=== PATIENT | male | born 1970 | race Caucasian/White ===

== ENCOUNTER → 2018-02-17 19:47 | Outpatient (CLI) | payer BC, SELFPAY | PROVIDERS: PCP Emergency Medicine; Visit Provider Nurse Practitioner Family | DX: G47.33 Obstructive sleep apnea (adult) (pediatric) (principal); G47.30 Sleep apnea, unspecified; I10 Essential (primary) hypertension; E66.9 Obesity, unspecified | CPT/HCPCS: 95811 ==

== ENCOUNTER 2019-02-05 19:24 | Inpatient (IN) ==
--- NOTE | 2019-02-05 19:31 | Emergency Department Note ---
ED Disposition <Prem Styles - Last Filed: 02/05/19 19:46> Condition on Discharge: Fair Time of Disposition: 21:42 - Critical Care Critical Care Time: No <Wild Peraza - Last Filed: 02/05/19 21:43> Clinical Impression: COPD exacerbation, Acute respiratory failure with hypoxia Disposition: Admitted as Observation Referrals: Irma Carroll APRN [Primary Care Provider] - Attestation: On 02/05/19, the high probability of a clinically significant, sudden or life threatening deterioration of the following system(s) required my full and direct attention, intervention and personal management. The time I documented below is in addition to time spent performing reported procedures but includes the following listed in this critical care notation. Medical Decision Making <Prem Styles - Last Filed: 02/05/19 19:46> - Medical Records Medical records reviewed: Yes: I reviewed the patient's medical records. - Oswald Inquiry Pt receiving controlled substance: No Oswald was queried for this patient: No - Lab Data Lab results reviewed: Yes: I reviewed the patient's lab results. Result diagrams: 02/05/19 19:25 02/05/19 19:25 - ECG Data Tracing #1 ECG initial impression date: 02/05/19 ECG initial impression time: 20:00 Normal Sinus Rhythm: Yes Arrhythmias present: sinus tach - Physician Consults Physician Consulted: deysi Time: 21:41 Reason -: Admission <Wild Peraza - Last Filed: 02/05/19 21:43> Vital Signs: 02/05/19 19:25 02/05/19 19:37 02/05/19 19:48 Temperature 100.5 F H Temperature Source Oral Pulse Rate Pulse Rate [Right Brachial] 117 H 120 H Respiratory Rate 26 H Blood Pressure [Right Arm] 159/106 H 150/101 H Blood Pressure Mean [Right Arm] 123 117 Blood Pressure Source [Right Arm] Automatic Cuff Automatic Cuff Blood Pressure Position [Right Arm] Sitting Sitting 02 Sat by Pulse Oximetry 85 L 92 L 90 L Oxygen Delivery Method Non-Rebreather Room Air Nasal Cannula Oxygen Flow Rate (LPM) 6 02/05/19 19:49 02/05/19 20:00 02/05/19 20:01 Temperature Temperature Source Pulse Rate 93 H 94 H Pulse Rate [Right Brachial] Respiratory Rate Blood Pressure [Right Arm] Blood Pressure Mean [Right Arm] Blood Pressure Source [Right Arm] Blood Pressure Position [Right Arm] 02 Sat by Pulse Oximetry 88 L Oxygen Delivery Method Nasal Cannula Oxygen Flow Rate (LPM) 4 02/05/19 20:05 02/05/19 20:50 02/05/19 20:51 Temperature Temperature Source Pulse Rate 91 H 90 Pulse Rate [Right Brachial] 113 H Respiratory Rate 23 Blood Pressure [Right Arm] 121/72 Blood Pressure Mean [Right Arm] 88 Blood Pressure Source [Right Arm] Automatic Cuff Blood Pressure Position [Right Arm] Sitting 02 Sat by Pulse Oximetry 93 L Oxygen Delivery Method Nasal Cannula Oxygen Flow Rate (LPM) 4 02/05/19 20:52 Temperature 99.9 F H Temperature Source Oral Pulse Rate Pulse Rate [Right Brachial] 110 H Respiratory Rate 18 Blood Pressure [Right Arm] 132/72 Blood Pressure Mean [Right Arm] 92 Blood Pressure Source [Right Arm] Automatic Cuff Blood Pressure Position [Right Arm] Sitting 02 Sat by Pulse Oximetry 94 L Oxygen Delivery Method Nasal Cannula Oxygen Flow Rate (LPM) 4 - Lab Data Lab Results 02/05/19 19:25: WBC 14.5 H, RBC 6.02, Hgb 17.2, Hct 50.3, MCV 83.4, MCH 28.5, MCHC 34.1, RDW 12.6, Plt Count 360, MPV 7.4, Neut % (Auto) 77.3, Lymph % (Auto) 13.7, [place] % (Auto) 5.2, Eos % (Auto) 3.4, Baso % (Auto) 0.5, Neut # (Auto) 11.2 H, Lymph # (Auto) 2.0, [place] # (Auto) 0.8, Eos # (Auto) 0.5 H, Baso # (Auto) 0.1 02/05/19 19:25: Sodium 137, Potassium 4.6, Chloride 100, Carbon Dioxide 29, Anion Gap 12.6, BUN 9, Creatinine 0.71, Estimated Creat Clear 138, Estimated GFR 119, Est GFR ( Amer) 145, Glucose 100, Calcium 8.3 L, Total Bilirubin 0.8, AST 17, ALT 22, Alkaline Phosphatase 106, Troponin I < 0.02, Total Protein 7.9, Albumin 3.3 L, Globulin 4.6 H, Albumin/Globulin Ratio 0.7 L 02/05/19 19:25: D-Dimer 177 02/05/19 19:25: B-Natriuretic Peptide 6 02/05/19 19:38: Lactate 1.2 02/05/19 20:12: Specimen Source R/r, O2 % 3.5, ABG pH 7.41, ABG pCO2 43.7, ABG pO2 54.0 L, ABG HCO3 27.0 H, ABG Total CO2 28.4 H, ABG O2 Saturation 91, ABG Base Excess 2.4 H, Arley Test Y Orders (Tests/Meds): ED MEDICATIONS Generic Name Dose Route Start Last Admin Trade Name Freq PRN Reason Stop Dose Admin Ceftriaxone Sodium 2 gm/ 100 mls @ 200 mls/hr 02/05/19 21:15 Sodium Chloride IV 02/19/19 21:14 Q24H [facility] Protocol Azithromycin 500 mg/ Sodium 250 mls @ 250 mls/hr 02/05/19 21:15 Chloride IV 02/19/19 21:14 Q24H [facility] Protocol Discontinued Medications Generic Name Dose Route Start Last Admin Trade Name Freq PRN Reason Stop Dose Admin Albuterol/Ipratropium 3 ml 02/05/19 19:28 02/05/19 19:48 Duoneb 3ml [facility] 02/05/19 19:29 3 ml ONCE ONE Administration Albuterol/Ipratropium 3 ml 02/05/19 20:16 02/05/19 20:48 Duoneb 3ml [facility] 02/05/19 20:17 3 ml ONCE ONE Administration Aspirin 324 mg 02/05/19 19:28 02/05/19 19:36 Aspirin 81mg Chewable Tablet PO 02/05/19 19:29 324 mg ONCE ONE Administration Methylprednisolone Sodium Succinate 125 mg 02/05/19 19:28 02/05/19 19:36 Solu-Medrol 125mg/2ml Vial IV 02/05/19 19:29 125 mg ONCE ONE Administration ORDERS Category Date Time Status XR chest portable Stat Exams 02/05/19 19:27 Taken Blood Culture Stat Micro 02/05/19 19:38 Received ABG [Arterial Blood Gas] Stat RT 02/05/19 19:48 Ordered ECG Request by /Lacey Stat Y 02/05/19 19:27 Ordered - ECG Data Tracing #1 incomplete RBBB, ST, no ischemia (Wild Peraza) Medical Decision Narrative: care to Dr Peraza at 20:00 (Prem Styles) General Adult HPI - General Mode of Arrival: EMS Source of Information: Patient, EMS <Prem Styles - Last Filed: 02/05/19 19:46> - General Limitations: dyspnea <Wild Peraza - Last Filed: 02/05/19 21:43> - General Stated complaint: CP Time Seen by Provider: 02/05/19 19:29 - History of Present Illness HPI narrative: mild to mod short of breath constant today, hx copd, no chest pain, no fever, +home oxygen, no rash (Prem Styles) - Related Data Home Medications Medication Instructions Recorded Confirmed Amlodipine Besylate [Norvasc 5mg 5 mg PO DAILY 02/05/19 02/05/19 tablet] Lisinopril [Prinivil 10mg Tablet] 10 mg PO DAILY 02/05/19 02/05/19 Allergies Allergy/AdvReac Type Severity Reaction Status Date / Time No Known Allergies Allergy Verified 02/05/19 19:32 [facility] History Medical History: Reports:: Hypertension, Pulmonary Embolism Other Medical History: Reports: Other Comment: CRISTEL, Pulmonary Embolism Other Surgeries: Yes: Colonoscopy, Other Amputation: No Fractures: No Comment: ilostomy, ilostomy take down - Social History Smoking Status: Current every day smoker # Packs/Day (cigarettes): 1 #Yrs smoked (if former smoker): 28 Alcohol Intake: current Alcohol Intake Frequency:: holidays/special occasions only Substance Use Type: denies use Occupational Status: disabled Housing: apartment Household Members: none Family Hx:: Diabetes, Hypertension, Cancer <Prem Styles - Last Filed: 02/05/19 19:46> - Hepatitis A Screen Attestation statement:: This patient has been screened for Hepatitis A risk factors. ROS Obtained: Yes Systems reviewed as appropriate & no additional complaints - Constitutional Constitutional: Reports fatigue - Eyes Eyes: Denies change in vision - ENT Ears, Nose, Mouth, and Throat: Denies neck pain - Cardiovascular Cardiovascular: Denies chest pain - Respiratory Respiratory: Yes cough, Yes dyspnea - Gastrointestinal Gastrointestingal: Denies: abdominal pain - Musculoskeletal Musculoskeletal: Denies neck pain - Integumentary/Breasts Skin/Breast: Denies rash - Neurologic Neurologic: Denies dizziness <Prem Sytles - Last Filed: 02/05/19 19:46> Physical Exam - General General appearance: alert - Head Head exam: normocephalic - Eye Eye exam: Present: normal appearance - ENT ENT exam: Present: mucous membranes moist - Neck Neck exam: Present: normal inspection - Chest Chest inspection: Present: normal inspection - Respiratory Respiratory exam: Present: wheezes - Cardiovascular Cardiovascular exam: Present: normal rhythm, tachycardia - Abdominal Exam Abdominal exam: Present: soft. Absent: tenderness - Extremities Exam Extremities exam: Present: full ROM - Back Exam Back exam: Absent: vertebral tenderness - Neurological Exam Neurological exam: Present: alert, oriented X3 - Psychiatric Psychiatric exam: Present: normal affect, normal mood - Skin Skin exam: Present: warm, dry <Prem Styles - Last Filed: 02/05/19 19:46> - Respiratory Respiratory exam: Present: prolonged expiratory phase <Wild Peraza - Last Filed: 02/05/19 21:43>
[2019-02-05 19:53] LABS: Basophils # 0.1 K/mm3 (0-0.2); Basophils % 0.5 % (0.1-2.0); Eosinophils # 0.5 K/mm3 (0.0-0.4); Eosinophils % 3.4 % (0.1-12.0); Hematocrit 50.3 % (42.0-52.0); Hemoglobin 17.2 g/dL (14.1-18.0); Lymphocytes % 13.7 % (10-50); Mean Corpuscular HGB Conc 34.1 g/dL (31.8-35.4); Mean Corpuscular Volume 83.4 fl (80-94); Mean Platelet Volume 7.4 fl (7.4-10.4); Monocytes # 0.8 K/mm3 (0.1-1.0); Monocytes % 5.2 % (1.7-9.3); Neutrophils # 11.2 K/mm3 (1.8-7.8); Neutrophils % 77.3 % (37.0-80.0); Platelet Count 360 K/mm3 (142-424); Red Blood Count 6.02 M/mm3 (4.60-6.20); Red Cell Distribution Width 12.6 % (11.5-17.5); White Blood Count 14.5 K/mm3 (4.8-10.8)
[2019-02-05 20:06] LABS: Alanine Aminotransferase 22 U/L (12-78); Albumin Level 3.3 gm/dL (3.4-5.0); Albumin/Globulin Ratio 0.7 (1.1-1.8); Alkaline Phosphatase 106 U/L (46-116); Anion Gap 12.6 mEq/L (5-15); Aspartate Amino Transferase 17 U/L (15-37); Bilirubin,Total 0.8 mg/dL (0.2-1.0); Blood Urea Nitrogen 9 mg/dL (7-18); Calcium 8.3 mg/dL (8.5-10.1); Carbon Dioxide 29 mmol/L (21.0-32.0); Chloride 100 mmol/L (98-107); Globulin 4.6 gm/dl (1.3-3.2); Glucose 100 mg/dL (74-106); Sodium 137 mmol/L (136-145); Total Protein,Serum 7.9 gm/dL (6.4-8.2)
[2019-02-05 20:13] LABS: ABG Base Excess 2.4 mmol/L (-2.4-2.3); ABG Oxygen Saturation 91 % (90-100); ABG PCO2 43.7 mmhg (35.0-45.0); ABG PH 7.41 mmol/L (7.35-7.45); ABG TCO2 28.4 mmhg (23-27)
[2019-02-05 20:14] LABS: Allen's Test Y; Oxygen 3.5 %
[2019-02-06 04:08] LABS: Basophils % 0.2 % (0.1-2.0); Eosinophils # 0.1 K/mm3 (0.0-0.4); Eosinophils % 0.4 % (0.1-12.0); Hematocrit 50.6 % (42.0-52.0); Hemoglobin 16.9 g/dL (14.1-18.0); Lymphocytes # 0.8 K/mm3 (0.7-4.5); Lymphocytes % 6.7 % (10-50); Mean Corpuscular HGB Conc 33.4 g/dL (31.8-35.4); Mean Corpuscular Volume 85.7 fl (80-94); Mean Platelet Volume 7.2 fl (7.4-10.4); Monocytes # 0.2 K/mm3 (0.1-1.0); Monocytes % 1.7 % (1.7-9.3); Neutrophils # 10.6 K/mm3 (1.8-7.8); Neutrophils % 90.9 % (37.0-80.0); Platelet Count 346 K/mm3 (142-424); Red Blood Count 5.91 M/mm3 (4.60-6.20); Red Cell Distribution Width 12.5 % (11.5-17.5); White Blood Count 11.6 K/mm3 (4.8-10.8)
[2019-02-06 04:23] LABS: Anion Gap 13.6 mEq/L (5-15); Blood Urea Nitrogen 11 mg/dL (7-18); Calcium 8.6 mg/dL (8.5-10.1); Carbon Dioxide 30 mmol/L (21.0-32.0); Chloride 98 mmol/L (98-107); Sodium 137 mmol/L (136-145)
[2019-02-06 04:29] LABS: Glucose 199 mg/dL (74-106)
[2019-02-06 04:31] LABS: Lymphocytes % 5 % (10-50); Neutrophils % 89 % (42-76); RBC Morphology Normal; Total Cells Counted 100
--- NOTE | 2019-02-06 07:41 | History & Physical Report ---
*Admission Date: 02/05/19 *Chief complaint: Shortness of breath *History of present illness: 48-year-old male with hypertension and COPD with [id number] history of cigarette use, and sleep apnea presented to the emergency department with 2 days of shortness of breath, increased sputum production, subjective fevers without chills. He also reports to me this morning a week to a week and a half of chest tightness as if a weight was sitting on his chest that he attributed to coughing. Patient uses BiPAP with oxygen at night but admits that his oxygen concentrator has been malfunctioning for quite some time. He has not contacted his medical DME supplier to remedy this situation. Over the preceding 48 hours his symptoms began and quickly escalated and he sought treatment at the emergency department. In the emergency department the patient was in mild respiratory distress which was corrected with supplemental oxygen and breathing treatments. However even in the emergency department while patient's O2 sats were adequate on oxygen with ambulation he would desat into the mid 80s. Patient was admitted for treatment of COPD exacerbation. Patient tells me he also has inhaled medications at home, Spiriva and albuterol, which some time ago and he has yet to refill [facility] History I have reviewed the patient's past medical history: Yes Medical History: Reports:: Chronic Obstructive Pulmonary Disease (COPD), Hypertension, Pulmonary Embolism Denies:: Cancer, Diabetes Mellitus Type 1, Diabetes Mellitus Type 2, MRSA *Have you ever received a pneumonia vaccine?: No *Have you received a flu vaccine this season?: No Other Medical History: Reports: Other Comment:: Obstructive sleep apnea Other Surgeries: Yes: Colonoscopy, Other Amputation: No Fractures: No - *Social History Educational Level: Attended College Smoking Status: Current every day smoker Tobacco Type: cigarettes # Packs/Day (cigarettes): 1 #Yrs smoked (if former smoker): 28 Alcohol Intake: never Alcohol Intake Frequency:: holidays/special occasions only Substance Use Type: denies use *Occupational Status:: disabled Housing: other Household Members: none *Travel in the last 8 weeks: None - Psychiatric History Expresses thoughts of harming self/others: None Suicide Plan Description: No Plan Family Hx:: Diabetes, Hypertension, Cancer Review of Systems - Review of Systems Review of systems:: pertinent systems reviewed and negative unless documented below - Constitutional Reports fatigue, Reports fever(s), Denies body ache(s), Denies chills - *Cardiovascular Reports chest pain at rest, Reports shortness of breath, Reports shortness of breath with activity, Denies generalized swelling - *Respiratory Comments: Orthopnea - *Neurologic Denies dizziness Meds Home Medications Medication Instructions Recorded Confirmed Type Amlodipine Besylate [Norvasc 5mg 5 mg PO DAILY 02/05/19 02/05/19 History tablet] Lisinopril [Prinivil 10mg Tablet] 10 mg PO DAILY 02/05/19 02/05/19 History Allergies Allergy/AdvReac Type Severity Reaction Status Date / Time No Known Allergies Allergy Verified 02/05/19 19:32 Exam Vital signs and Labs for Last 24 Hours: Temp Pulse Resp BP Pulse Ox 97.7 F 101 H 18 135/79 90 L 02/06/19 04:00 02/06/19 06:32 02/06/19 04:00 02/06/19 04:00 02/06/19 06:32 Laboratory Results - last 24 hr 02/05/19 19:25: WBC 14.5 H, RBC 6.02, Hgb 17.2, Hct 50.3, MCV 83.4, MCH 28.5, MCHC 34.1, RDW 12.6, Plt Count 360, MPV 7.4, Neut % (Auto) 77.3, Lymph % (Auto) 13.7, [place] % (Auto) 5.2, Eos % (Auto) 3.4, Baso % (Auto) 0.5, Neut # (Auto) 11.2 H, Lymph # (Auto) 2.0, [place] # (Auto) 0.8, Eos # (Auto) 0.5 H, Baso # (Auto) 0.1 02/05/19 19:25: Sodium 137, Potassium 4.6, Chloride 100, Carbon Dioxide 29, Anion Gap 12.6, BUN 9, Creatinine 0.71, Estimated Creat Clear 138, Estimated GFR 119, Est GFR ( Amer) 145, Glucose 100, Calcium 8.3 L, Total Bilirubin 0.8, AST 17, ALT 22, Alkaline Phosphatase 106, Troponin I < 0.02, Total Protein 7.9, Albumin 3.3 L, Globulin 4.6 H, Albumin/Globulin Ratio 0.7 L 02/05/19 19:25: D-Dimer 177 02/05/19 19:25: B-Natriuretic Peptide 6 02/05/19 19:38: Lactate 1.2 02/05/19 20:12: Specimen Source R/r, O2 % 3.5, ABG pH 7.41, ABG pCO2 43.7, ABG pO2 54.0 L, ABG HCO3 27.0 H, ABG Total CO2 28.4 H, ABG O2 Saturation 91, ABG Base Excess 2.4 H, Arley Test Y 02/06/19 01:10: Troponin I < 0.02 02/06/19 04:00: WBC 11.6 H, RBC 5.91, Hgb 16.9, Hct 50.6, MCV 85.7, MCH 28.6, MCHC 33.4, RDW 12.5, Plt Count 346, MPV 7.2 L, Neut % (Auto) 90.9 H, Lymph % (Auto) 6.7 L, [place] % (Auto) 1.7, Eos % (Auto) 0.4, Baso % (Auto) 0.2, Neut # (Auto) 10.6 H, Lymph # (Auto) 0.8, [place] # (Auto) 0.2, Eos # (Auto) 0.1, Baso # (Auto) 0.0, Total Counted 100, Neutrophils % (Manual) 89 H, Band Neutrophils % 6.0, Lymphocytes % (Manual) 5 L, Platelet Estimate Normal, RBC Morphology Normal 02/06/19 04:00: Sodium 137, Potassium 4.6, Chloride 98, Carbon Dioxide 30, Anion Gap 13.6, BUN 11, Creatinine 0.85, Estimated Creat Clear 116, Estimated GFR 97, Est GFR ( Amer) 117, Glucose 199 H D, Calcium 8.6, Troponin I < 0.02 I & O for Last 24 hours: Intake & Output 02/03/19 02/04/19 02/05/19 02/06/19 11:59 11:59 11:59 11:59 Output Total 650 / 650 Balance -650 / -650 Weight 316 lb 2 oz Narrative: Patient is sitting up in bed this morning with noticeable increased respiratory rate and pressure lipped breathing. ENT exam is unremarkable. Neck has no jugular venous distention or lymphadenopathy. Lung exam reveals poor inspiratory effort, faint expiratory wheeze with forced expiration, overall distant breath sounds. Heart has a regular rate and rhythm. Abdomen is obese and soft. Extremities are without edema. Neurologically there is no deficit. Assessment and Plan (1) Acute respiratory failure with hypoxia Current visit: Yes Status: Acute Category: Medical Code(s): J96.01 - Acute respiratory failure with hypoxia Patient admits he has improved. I am suspicious that there is any diastolic dysfunction going on here and so patient's fluids will be stopped, IV diuretics will be ordered and an echocardiogram will be ordered for the morning. He will be maintained on oxygen at this time. (2) COPD exacerbation Current visit: Yes Status: Acute Category: Medical Code(s): J44.1 - Chronic obstructive pulmonary disease with (acute) exacerbation Continue IV steroids and duo nebs for his COPD exacerbation. Sputum has been sent for culture and he will be continued on antibiotics (3) Hypertension Current visit: No Status: Acute Qualifiers: Hypertension type: other secondary hypertension Qualified Code(s): I15.8 - Other secondary hypertension Category: Medical Code(s): I10 - Essential (primary) hypertension (4) Sleep apnea Current visit: No Status: Chronic Qualifiers: Sleep apnea type: other type Qualified Code(s): G47.39 - Other sleep apnea Category: Medical Code(s): G47.30 - Sleep apnea, unspecified
--- NOTE | 2019-02-06 10:51 | Pharmacy Consult Notes ---
[facility] Pharmacy VTE Monitoring - Patient Demographics Admission date: 02/05/19 Report Date: 02/06/19 Time: 10:51 Allergies/Adverse Reactions: Patient Allergies No Known Allergies Allergy (Verified 02/05/19 19:32) Height: 1.8 m Weight: 143.392 kg Patient Problems: Current Active Problems (Updated 02/06/19 @ 07:44 by Brandon Colon MD) COPD exacerbation (Acute) Acute respiratory failure with hypoxia (Acute) - VTE Risk Labs: VTE Related Lab Results Hgb 16.9 g/dL (14.1-18.0) 02/06/19 04:00 Hct 50.6 % (42.0-52.0) 02/06/19 04:00 Plt Count 346 K/mm3 (142-424) 02/06/19 04:00 BUN 11 mg/dL (7-18) 02/06/19 04:00 Creatinine 0.85 mg/dL (0.70-1.30) 02/06/19 04:00 Estimated Creat Clear 116 mL/min (50-200) 02/06/19 04:00 Was VTE Risk Assessment Performed: Yes VTE Score: 6 VTE Risk Level: Moderate Risk - Prophylaxis VTE Prophylaxis Ordered?: Yes Types of VTE Prophylaxis: TEDS Knee High Location of Applied Device: Bilateral Lower Extremeties
--- NOTE | 2019-02-07 11:42 | Progress Note ---
Internal Medicine - PN: Subj *Date: 02/07/19 *Time: 11:38 Interval history: Patient admitted 02/05/18 for COPD exacerbation. Presented to ER via EMS for shortness of breath, hypoxia. has portable O2 at home but concentrator has not been working and hasn't had a chance to get if fixed. Has been on inhalers in the past, but has not had RX for inhalers since moving to [place] several months ago. Has had 10 days or so of chest tightness, primarily with coughing. Pain in left side of chest. This has improved since admission, but still present with cough. States nebs make him cough more and therefore cause pain to recur. Overall, however, states he is feeling better and questions being able to go home. Exam Vital signs and Labs for Last 24 Hours: Temp Pulse Resp BP Pulse Ox 98.0 F 103 H 20 116/66 90 L 02/07/19 10:51 02/07/19 11:16 02/07/19 10:51 02/07/19 10:51 02/07/19 10:51 I & O for Last 24 hours: Intake & Output 02/04/19 02/05/19 02/06/19 02/07/19 11:59 11:59 11:59 11:59 Intake Total 1200 / 1200 1967 / 1967 Output Total 1600 / 1600 2625 / 2625 Balance -400 / -400 -657 / -657 Weight 316 lb 2 oz 317 lb 8 oz - Constitutional no acute distress, obese Comments: dyspneic with speech - *Routine HEENT Exam Head: Present: normocephalic Eye: Present: PERRL ENT: Present: mucous membranes moist - *Routine Respiratory Exam Present: prolonged expiratory phase, wheezes - *Routine Cardiovascular Exam Present: RRR - *Routine Abdominal Exam Present: soft. Absent: tenderness - *Routine Extremities Exam Present: full ROM, normal capillary refill. Absent: cyanosis, clubbing - *Routine Skin Exam Present: intact. Absent: cyanosis - *Routine Neurological Exam Present: alert, oriented X3 Assessment and Plan (1) Acute respiratory failure with hypoxia Current visit: Yes Status: Acute Category: Medical Code(s): J96.01 - Acute respiratory failure with hypoxia (2) COPD exacerbation Current visit: Yes Status: Acute Category: Medical Code(s): J44.1 - Chronic obstructive pulmonary disease with (acute) exacerbation (3) Hypertension Current visit: No Status: Acute Qualifiers: Hypertension type: other secondary hypertension Qualified Code(s): I15.8 - Other secondary hypertension Category: Medical Code(s): I10 - Essential (primary) hypertension (4) Sleep apnea Current visit: No Status: Chronic Qualifiers: Sleep apnea type: other type Qualified Code(s): G47.39 - Other sleep apnea Category: Medical Code(s): G47.30 - Sleep apnea, unspecified (5) Chest pain Current visit: Yes Status: Acute Category: Medical Code(s): R07.9 - Chest pain, unspecified - Assessment and plan all Dx Assessment and Plan for all problems:: Continue current antibiotics, steroids and neb treatments. Sputum culture is pending. Patient questions discharge from hospital - will discuss with Dr Pelayo Patient will need new oxygen concentrator upon discharge. Will also need new scripts for inhalers sent to [facility]. Cardiology consult due to chest pain, h/o HTN. The patient's infection will respond to the chosen ABx?: Yes Is the patient receiving the right drug, dose, and route?: Yes Could a more targeted ABx be ordered?: No
--- NOTE | 2019-02-07 13:20 | Consult Report ---
History of Present Illness Consult date: 02/07/19 Requesting physician: Wild Pelayo Consult reason: chest pain Chief complaint: chest pain, HTN Additional Medical History:: 1. Tobacco use, continued A. COPD 2. Sleep apnea, history of BiPAP use 3. Obesity 4. Hypertension 5. History of DVT and pulmonary embolus approximately 2010, anticoagulation therapy for about 1 year 6. History of ileostomy placement and takedown approximately 2014 with surgical removal of about 1 foot of the small intestine per patient. This was felt to be related to a polyp that had ruptured. History of present illness: 48-year-old male with hypertension and COPD with [id number] history of cigarette use, and sleep apnea presented to the emergency department with 2 days of shortness of breath, increased sputum production, subjective fevers without chills. He also reports to me this morning a week to a week and a half of chest tightness as if a weight was sitting on his chest that he attributed to coughing. Patient uses BiPAP with oxygen at night but admits that his oxygen concentrator has been malfunctioning for quite some time. He has not contacted his medical DME supplier to remedy this situation. Over the preceding 48 hours his symptoms began and quickly escalated and he sought treatment at the emergency department. In the emergency department the patient was in mild respiratory distress which was corrected with supplemental oxygen and breathing treatments. However even in the emergency department while patient's O2 sats were adequate on oxygen with ambulation he would desat into the mid 80s. Rowena villarreal was admitted for treatment of COPD exacerbation. Patient tells me he also has inhaled medications at home, Spiriva and albuterol, which some time ago and he has yet to refill The above per Dr. Colon Patient describes his chest discomfort is worsening with deep breathing or coughing only. He denies any exertional chest pain. Patient is not a diabetic but is a long-term smoker. EKG on admission shows sinus tachycardia with right axis deviation. Troponins have returned normal x3. D-dimer noted to be within normal limits. BNP noted to be 6. Chest x-ray showed no evidence of congestive heart failure. Preliminary echocardiogram today shows preserved left ventricular ejection fraction although images are somewhat difficult to obtain. No appreciable significant valvular heart disease noted. [facility] History Medical History: Reports:: Chronic Obstructive Pulmonary Disease (COPD), Hypertension, Pulmonary Embolism Denies:: Cancer, Diabetes Mellitus Type 1, Diabetes Mellitus Type 2, MRSA *Have you ever received a pneumonia vaccine?: No *Have you received a flu vaccine this season?: No Other Medical History: Reports: Other Other Surgeries: Yes: Colonoscopy, Other Amputation: No Fractures: No - *Social History Educational Level: Attended College Smoking Status: Current every day smoker Tobacco Type: cigarettes # Packs/Day (cigarettes): 1 #Yrs smoked (if former smoker): 28 Alcohol Intake: never Alcohol Intake Frequency:: holidays/special occasions only Substance Use Type: denies use *Occupational Status:: disabled Housing: other Household Members: none *Travel in the last 8 weeks: None - Psychiatric History Expresses thoughts of harming self/others: None Suicide Plan Description: No Plan Family Hx:: Diabetes, Hypertension, Cancer Meds Home Medications Medication Instructions Recorded Confirmed Type Amlodipine Besylate [Norvasc 5mg 5 mg PO DAILY 02/05/19 02/05/19 History tablet] Lisinopril [Prinivil 10mg Tablet] 10 mg PO DAILY 02/05/19 02/05/19 History Allergies Allergy/AdvReac Type Severity Reaction Status Date / Time No Known Allergies Allergy Verified 02/05/19 19:32 Review of Systems - *Cardiovascular Reports chest pain, Reports shortness of breath with activity - *Respiratory Reports cough, Reports shortness of breath, Reports shortness of breath with activity - *Gastrointestinal Denies change in stools, Denies nausea, Denies vomiting - *Genitourinary Reports urinary urgency, Denies blood in urine - *Musculoskeletal Reports joint pain, Reports back pain - *Neurologic Denies dizziness Exam Vital signs and Labs for Last 24 Hours: Temp Pulse Resp BP Pulse Ox 98.0 F 103 H 20 116/66 90 L 02/07/19 10:51 02/07/19 11:16 02/07/19 10:51 02/07/19 10:51 02/07/19 10:51 I & O for Last 24 hours: Intake & Output 02/05/19 02/06/19 02/07/19 02/08/19 11:59 11:59 11:59 11:59 Intake Total 1200 / 1200 1967 / 1967 360 / 360 Output Total 1600 / 1600 2625 / 2625 Balance -400 / -400 -657 / -657 360 / 360 Weight 316 lb 2 oz 317 lb 8 oz - *Routine HEENT Exam Head: Present: normocephalic Eye: Present: EOMI, PERRL ENT: Present: mucous membranes moist - *Routine Neck Exam Present: supple. Absent: JVD, carotid bruit - *Routine Respiratory Exam Present: CTA bilaterally. Absent: accessory muscle use, rales, rhonchi, wheezes - *Routine Cardiovascular Exam Present: RRR. Absent: murmur, gallop, rubs - *Routine Abdominal Exam Present: soft. Absent: tenderness, distended, guarding - *Routine Extremities Exam Absent: edema, calf tenderness - *Routine Neurological Exam Present: alert, oriented X3, moving all extremities Assessment and Plan (1) Acute respiratory failure with hypoxia Current visit: Yes Status: Acute Category: Medical Code(s): J96.01 - Acute respiratory failure with hypoxia (2) COPD exacerbation Current visit: Yes Status: Acute Category: Medical Code(s): J44.1 - Chronic obstructive pulmonary disease with (acute) exacerbation (3) Hypertension Current visit: No Status: Acute Qualifiers: Hypertension type: other secondary hypertension Qualified Code(s): I15.8 - Other secondary hypertension Category: Medical Code(s): I10 - Essential (primary) hypertension (4) Sleep apnea Current visit: No Status: Chronic Qualifiers: Sleep apnea type: other type Qualified Code(s): G47.39 - Other sleep apnea Category: Medical Code(s): G47.30 - Sleep apnea, unspecified (5) Chest pain Current visit: Yes Status: Acute Category: Medical Code(s): R07.9 - Chest pain, unspecified - Assessment and plan all Dx Assessment and Plan for all problems:: 1. Chest pain with atypical features. With preserved ejection fraction on echocardiogram and normal troponins, no further cardiac work-up at this time until patient's pulmonary status has improved. An outpatient Lexiscan Myoview could be obtained in the near future. 2. Continue hypertension/antianginal medication in the form of Norvasc therapy. If heart rate control is needed, then consider cardizem therapy in place of norvasc. 3. Continue Lasix therapy for presumed pulmonary hypertension setting of COPD. 4. Patient could be discharged home from a cardiac standpoint with follow-up in our office in 1 to 2 weeks to proceed with further cardiac testing.
--- NOTE | 2019-02-07 21:49 | Cardiology Report ---
PROCEDURE: 2-D M-mode and color Doppler study INDICATIONS FOR THE TEST: Chest pain+ COPD+ Heart Murmur Tobacco Smoking+ Palpitations Fatigue Syncope Edema Hypertension+Diabetes Mellitus Rheumatic Fever SOB TRACY Obesity+Hyperlipidemia Family History HDSLEEP APNEA, HOME O2, PE Additional History PATIENT INFORMATION HEIGHT: 71 WEIGHT:316 GENDER: Male B/P:135/79 2-D/M-MODE INTERPRETATION: 2-D MEASUREMENTS OBSERVED VALUES IN CMS Right Ventricular Dimension (RVDd) 2.6 Interventricular Septum (Thickness)(IVsd) 1.6 Left Ventricular Internal Dimensions(LVIDd) 5.6 Left Ventricular Posterior Wall (Thickness)(LVPWd) 1.5 Aortic Root 3.7 Aortic Cusp Separation 2.1 Left Atrial Dimensions (LAD) 3.9 2D 1. Left atrium is mildly enlarged, left ventricle is normal size, mild concentric left ventricular hypertrophy, visually estimated ejection fraction 55% with no regional wall motion abnormality. 2. The right atrium and right ventricle are normal size and contractility. 3. The aortic valve is minimally thickened and fibrosed. 4. The mitral and tricuspid valvular grossly normal. 5. The pulmonic valve is poorly visualized. 6. No significant pericardial effusion noted. DOPPLER INTERROGATION: Doppler interrogation of the aortic, mitral and tricuspid valvular presence of mild mitral and tricuspid regurgitation, tricuspid regurgitation jet velocity is inadequate for calculation of the right ventricular systolic pressure, Doppler evidence of impaired relaxation seen, there is no tissue Doppler performed CONCLUSION: 1. Technically difficult study because of the patient's factor and poor acoustic windows 2. Normal left ventricular size, mild concentric left ventricular hypertrophy, visually estimated ejection fraction 55% with no regional wall motion abnormality, Doppler evidence of impaired relaxation seen, there is no tissue Doppler performed. 3. Mild mitral and tricuspid regurgitation 4. No significant pericardial effusion noted.
--- NOTE | 2019-02-08 08:55 | Progress Note ---
Internal Medicine - PN: Subj *Date: 02/08/19 *Time: 08:52 Interval history: 48-year-old male patient resting quietly in bed. He reports he is breathing better today he is currently on 1 L of oxygen per nasal cannula. We will try him today on room air and possibly discharge after lunch. Exam Vital signs and Labs for Last 24 Hours: Temp Pulse Resp BP Pulse Ox 98.0 F 102 H 18 125/77 90 L 02/08/19 08:00 02/08/19 08:00 02/08/19 08:00 02/08/19 08:00 02/08/19 08:00 I & O for Last 24 hours: Intake & Output 02/05/19 02/06/19 02/07/19 02/08/19 23:59 23:59 23:59 23:59 Intake Total 2928 / 2928 1080 / 1080 350 / 350 Output Total 2500 / 2800 3350 / 3350 Balance 428 / 128 -2270 / -2270 350 / 350 Weight 315 lb 8 oz 316 lb 2 oz 317 lb 8.015 oz 319 lb 6 oz Microbiology Reports for the Last 24 Hours: Microbiology 02/07/19 20:00 Sputum - Expectorated Sputum Gram Stain - Final 02/05/19 19:38 Blood Blood Culture - Preliminary 02/05/19 19:38 Blood Blood Culture - Preliminary NO GROWTH AFTER 48 HOURS - Constitutional no acute distress - *Routine HEENT Exam Head: Present: normocephalic Eye: Present: EOMI, PERRL ENT: Present: mucous membranes dry - *Routine Neck Exam Present: supple, full ROM - *Routine Respiratory Exam Present: wheezes - *Routine Cardiovascular Exam Present: RRR - *Routine Abdominal Exam Present: soft, normoactive bowel sounds. Absent: tenderness - *Routine Extremities Exam Present: pulses intact. Absent: cyanosis - Routine Back/Spine/Pelvis Exam Back/Spine: Present: full ROM. Absent: CVA tenderness - *Routine Skin Exam Present: intact - *Routine Neurological Exam Present: alert, oriented X3, CN II-XII intact - Routine Psychiatric Exam Present: normal affect, normal thought process Assessment and Plan (1) Acute respiratory failure with hypoxia Current visit: Yes Status: Acute Category: Medical Code(s): J96.01 - Acute respiratory failure with hypoxia (2) COPD exacerbation Current visit: Yes Status: Acute Category: Medical Code(s): J44.1 - Chronic obstructive pulmonary disease with (acute) exacerbation (3) Hypertension Current visit: No Status: Acute Qualifiers: Hypertension type: other secondary hypertension Qualified Code(s): I15.8 - Other secondary hypertension Category: Medical Code(s): I10 - Essential (primary) hypertension (4) Sleep apnea Current visit: No Status: Chronic Qualifiers: Sleep apnea type: other type Qualified Code(s): G47.39 - Other sleep apnea Category: Medical Code(s): G47.30 - Sleep apnea, unspecified (5) Chest pain Current visit: Yes Status: Acute Category: Medical Code(s): R07.9 - Chest pain, unspecified - Assessment and plan all Dx Assessment and Plan for all problems:: Rales per Dr. Pelayo all orders per Dr. Pelayo. Cards has seen and recommends: 1. Chest pain with atypical features. With preserved ejection fraction on echocardiogram and normal troponins, no further cardiac work-up at this time until patient's pulmonary status has improved. An outpatient Lexiscan Myoview could be obtained in the near future. 2. Continue hypertension/antianginal medication in the form of Norvasc therapy. If heart rate control is needed, then consider cardizem therapy in place of norvasc. 3. Continue Lasix therapy for presumed pulmonary hypertension setting of COPD. 4. Patient could be discharged home from a cardiac standpoint with follow-up in our office in 1 to 2 weeks to proceed with further cardiac testing. Michaela will evaluate home BiPAP and see if any repairs are needed
--- NOTE | 2019-02-08 12:09 | Discharge Summary ---
General - General Admission date:: 02/05/19 HPI HPI: 48 YOM is resting quietly in bed has room air saturation of 93% an walking saturation of 86%. States he is ready to go home. 48-year-old male with hypertension and COPD with [id number]-zxbx history of cigarette use, and sleep apnea presented to the emergency department with 2 days of shortness of breath, increased sputum production, subjective fevers without chills. He also reports to me this morning a week to a week and a half of chest tightness as if a weight was sitting on his chest that he attributed to coughing. Patient uses BiPAP with oxygen at night but admits that his oxygen concentrator has been malfunctioning for quite some time. He has not contacted his medical DME supplier to remedy this situation. Over the preceding 48 hours his symptoms began and quickly escalated and he sought treatment at the emergency department. In the emergency department the patient was in mild respiratory distress which was corrected with supplemental oxygen and breathing treatments. However even in the emergency department while patient's O2 sats were adequate on oxygen with ambulation he would desat into the mid 80s. Patient was admitted for treatment of COPD exacerbation. Patient tells me he also has inhaled medications at home, Spiriva and albuterol, which some time ago and he has yet to refill Hospital Course Hospital Course: Cards has seen and recommends: 1. Chest pain with atypical features. With preserved ejection fraction on echocardiogram and normal troponins, no further cardiac work-up at this time until patient's pulmonary status has improved. An outpatient Lexiscan Myoview could be obtained in the near future. 2. Continue hypertension/antianginal medication in the form of Norvasc therapy. If heart rate control is needed, then consider cardizem therapy in place of norvasc. 3. Continue Lasix therapy for presumed pulmonary hypertension setting of COPD. 4. Patient could be discharged home from a cardiac standpoint with follow-up in our office in 1 to 2 weeks to proceed with further cardiac testing. (Per Juanis Coleman) Michaela will evaluate home BiPAP and see if any repairs are needed Will be D/C home today on regular home meds and Z-Cal, Omnicef 300mg BID X 5 days, and Lisinopril 40mg QD Objective Vital signs: Temp Pulse Resp BP Pulse Ox 98.0 F 96 H 18 125/77 90 L 06/04/19 08:00 02/08/19 10:02 02/08/19 08:00 02/08/19 08:00 02/08/19 08:00 no acute distress, morbidly obese - *Routine HEENT Exam Head: Present: normocephalic Eye: Present: EOMI, PERRL, normal accommodation ENT: Present: mucous membranes dry - *Routine Neck Exam Present: supple, trachea midline - *Routine Respiratory Exam Present: wheezes. Absent: accessory muscle use - *Routine Cardiovascular Exam Present: RRR - *Routine Abdominal Exam Present: soft, normoactive bowel sounds. Absent: tenderness - *Routine Extremities Exam Present: pulses intact - Routine Back/Spine/Pelvis Exam Back/Spine: Present: full ROM. Absent: CVA tenderness - *Routine Skin Exam Present: intact. Absent: jaundice - *Routine Neurological Exam Present: alert, oriented X3, CN II-XII intact - Routine Psychiatric Exam Present: normal affect, normal thought process Results Labs on day of discharge: Preliminary micro results at discharge 02/07/19 20:00 Sputum Culture - Preliminary Sputum - Expectorated Sputum 02/05/19 19:38 Blood Culture - Preliminary Blood 02/05/19 19:38 Blood Culture - Preliminary Blood NO GROWTH AFTER 48 HOURS - Additional Comments Rounded w/ Dr. Pelayo, all orders per Dr. Pelayo. DS: Diagnosis - Discharge Diagnosis (1) Acute respiratory failure with hypoxia Status: Acute (2) COPD exacerbation Status: Acute (3) Hypertension Status: Acute (4) Sleep apnea Status: Chronic (5) Chest pain Status: Acute Discharge Plan - Patient Discharge Instructions ACTIVITY: Continue current activity DIET: continue same diet Patient Instructions: Chronic Obstructive Pulmonary Disease, DI for Chronic Obstructive Pulmonary Disease - Follow up Plan Follow up with: Wild Pelayo MD [Staff Physician] - 1 week Reginald Oliver MD [Staff Physician] - 2 weeks Disposition: Home, Self-Fdc Medications: Home Medications Medication Instructions Recorded Confirmed Type Amlodipine Besylate [Norvasc 5mg 5 mg PO DAILY 02/05/19 02/05/19 History tablet] Lisinopril [Prinivil 10mg Tablet] 10 mg PO DAILY 02/05/19 02/05/19 History Azithromycin [Z-Cal 250mg Tab] 250 mg PO UD DOSE PK #6 tab 02/08/19 Rx Cefdinir [Omnicef 300mg Capsule] 300 mg PO BID 5 Days #10 cap 02/08/19 Rx Furosemide [Lasix 40mg tab] 40 mg PO DAILY 30 Days #30 tab 02/08/19 Rx Prescriptions/Medication Reconciliation: New Azithromycin [Z-Cal 250mg Tab] 250 mg PO UD DOSE PK #6 tab Furosemide [Lasix 40mg tab] 40 mg PO DAILY 30 Days #30 tab Cefdinir [Omnicef 300mg Capsule] 300 mg PO BID 5 Days #10 cap Continued Amlodipine Besylate [Norvasc 5mg tablet] 5 mg PO DAILY Lisinopril [Prinivil 10mg Tablet] 10 mg PO DAILY
== END 2019-02-08 17:40 | disposition home or self-care (01) | DRG 189 ==
LOC: ER 19:24 → 2ND 19:24 → OBSVTOIN 22:50 → 2ND 22:54
PROVIDERS: ADMIT Family Medicine; ATTEND Emergency Medicine
DX: J96.01 Acute respiratory failure with hypoxia; R07.89 Other chest pain; Z91.19 Patient's noncompliance with other medical treatment and regimen; Z90.49 Acquired absence of other specified parts of digestive tract; Z79.899 Other long term (current) drug therapy; G47.30 Sleep apnea, unspecified; Z82.49 Family history of ischemic heart disease and other diseases of the circulatory system; Z80.9 Family history of malignant neoplasm, unspecified; Z86.711 Personal history of pulmonary embolism; Z86.718 Personal history of other venous thrombosis and embolism; F17.210 Nicotine dependence, cigarettes, uncomplicated; Z83.3 Family history of diabetes mellitus; I10 Essential (primary) hypertension; J44.1 Chronic obstructive pulmonary disease with (acute) exacerbation; Z99.81 Dependence on supplemental oxygen; Z91.14 Patient's other noncompliance with medication regimen
CPT/HCPCS: 36415; 71010; 71045; 80048; 80053; 82803; 83605; 83880; 84484; 85007; 85025; 85378; 87040; 87070; 87075; 87077; 87205; 93005; 93306; 94640; 94760; 94761; 96365; 96367; 96375; 99285; J0456

== ENCOUNTER → 2019-03-07 06:45 | Outpatient (CLI) | payer BC, SELFPAY ==
--- NOTE | 2019-03-07 06:48 | NM_ITS ---
CARDIOLITE SPECT MYOCARDIAL PERFUSION LEXISCAN, REST AND STRESS: [facility] REVIEW QGS EF AND WALL MOTION EVALUATION: QPS - PERFUSION EVALUATION HISTORY: C.P. DOSE: 10.06 mCi technetium 99m mibi intravenously at rest followed by 31.9 mCi technetium 99m mibi following the intravenous ministration of 0.4 mg of Lexiscan. Resting blood pressure is 129/62. Stress blood pressure 117/56. FINDINGS: Ejection fraction is calculated to be 55%. Stress images reveal left ventricular dilatation. There is activity in the inferior wall and septum. Rest images reveal no significant change. 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 This is a high risk abnormal stress test
--- NOTE | 2019-03-07 07:39 | HMH.ITSHM ---
Current Home Medications as stated by this patient [place]ks or physician representative. []BREO BISOPROLOL FUROSEMIDE AMLODIPINE LISINOPRIL
== END ==
PROVIDERS: PCP Nurse Practitioner Family; Visit Provider Nurse Practitioner Family
DX: R07.9 Chest pain, unspecified (principal); R06.09 Other forms of dyspnea; R94.31 Abnormal electrocardiogram [ECG] [EKG]; I45.10 Unspecified right bundle-branch block; I15.8 Other secondary hypertension; J44.1 Chronic obstructive pulmonary disease with (acute) exacerbation; G47.39 Other sleep apnea; F17.200 Nicotine dependence, unspecified, uncomplicated
CPT/HCPCS: 78452; 93017; A9502; J2785

== ENCOUNTER → 2019-05-23 14:21 | Outpatient (CLI) | payer BC, SELFPAY ==
[2019-05-23 15:20] LABS: Anion Gap 12.5 mEq/L (5-15); Blood Urea Nitrogen 8 mg/dL (7-18); Calcium 9.3 mg/dL (8.5-10.1); Carbon Dioxide 32 mmol/L (21.0-32.0); Chloride 100 mmol/L (98-107); Estimated Glomerular Filt Rate 104 ml/min (>60); GFR (African American) 125 ML/MIN (>60); Glucose 95 mg/dL (74-106); Potassium 4.5 mmoL/L (3.5-5.1); Sodium 140 mmol/L (136-145)
== END ==
PROVIDERS: Visit Provider Urology
DX: I25.10 Atherosclerotic heart disease of native coronary artery without angina pectoris (principal); R06.09 Other forms of dyspnea; I10 Essential (primary) hypertension; I51.89 Other ill-defined heart diseases; R06.00 Dyspnea, unspecified; F17.200 Nicotine dependence, unspecified, uncomplicated
CPT/HCPCS: 36415; 80048; 83880

== ENCOUNTER → 2020-07-03 12:26 | Outpatient (CLI) | payer MEDICARE, BC, SELFPAY ==
--- NOTE | 2020-07-03 12:27 | CA_ITS ---
APPROVED REPORT EXAM: Comprehensive 2D, Doppler, and color-flow Echocardiogram Electromechanical Equipment Tester: Mely Hamilton RDCS Ht: 5 ft 11 in Wt: 307lbs BSA: 2.53 BP: 134/63 mmHg Indications: SOA CM MORBID OBESITY 2D Dimensions LVOT 1.90 cm (M/F) 1.5-2.5 M-Mode Dimensions RVDd 2.97 cm (0.9-2.6) LA Diam 3.20 cm (1.9-4.0) LVDd 5.35 cm (3.5-5.7) Ao Diam 3.75 cm (2.0-3.7) LVDs 2.89 cm (3.5-5.7) IVSd 2.17 cm (0.6-1.1) PWd 1.66 cm (0.6-1.1) EF (Teich) 76.90% FS 46.00% EDV (Teich) 138.30 mL ESV (Teich) 31.90 mL LV Diastology E Decel Time 320.00 (160-240 msec) E/A Ratio 0.8 MED E' 5.40 (< 7 cm/sec) E'/MED E' Ratio 11.52 (>14) LAT E' 6.70 (<10 cm/sec) E/LAT E' Ratio 9.28 (>14) Aortic Valve LVOT Max 114.00 (70-110 cm/s) LVOT VTI 23.48 cm AoV Peak Enrico. 154.00 (50-130 cm/s) AO Peak GR. 9.70 mmHg AO Mean GR. 5.80 (<5 mmHg) AO VTI 24.24 (18-25 cm) VINCENZO (VTI) 2.75 (2.5-4.5 cm2) Mitral Valve MV E Max Enrico. 62.00 (40-130 cm/s) MV A Velocity 77.00 (40-130 cm/s) E/A Ratio 0.81 MV Decel. Time 320.00 (160-240 ms) MV PHT 94.00 ms Left Ventricle Technically difficult study because of the patient factors and poor acoustic windows, endocardial surfaces are very poorly visualized. Left atrium is mildly enlarged, left ventricle is normal size, mild concentric left ventricular hypertrophy, visually estimated ejection fraction 55% with no regional wall motion abnormality, grade 1 diastolic dysfunction seen without tissue Doppler evidence of raise left atrial pressure. Right Ventricle Right atrium and right ventricle are mildly enlarged with normal contractility. Aortic Valve Aortic valve is minimally thickened and fibrosed, there is no aortic stenosis or aortic insufficiency. Mitral Valve Mitral valve is grossly normal, there is mild mitral regurgitation. Tricuspid Valve Tricuspid valve grossly normal, there is mild tricuspid regurgitation. Tricuspid regurgitation jet velocity is inadequate for calculation of the right ventricular systolic pressure. Pulmonic Valve Pulmonic valve is poorly visualized. Great Vessels Aortic root is normal size. Pericardium No significant pericardial effusion noted. Conclusion 1. Technically difficult study because of the patient's factor and poor acoustic windows. 2. Biatrial enlargement, normal left ventricular size, mild concentric left ventricular hypertrophy, visually estimated ejection fraction 55% with no regional wall motion abnormality, grade 1 diastolic dysfunction seen without tissue Doppler evidence of raise left atrial pressure. 3. Mildly enlarged right ventricle with normal contractility. 4. Mild mitral and tricuspid regurgitation. 5. No significant pericardial effusion noted. Electronically signed by : Ceasar Wood, 07/03/2020 18:27:54
== END ==
PROVIDERS: PCP Nurse Practitioner Family; Visit Provider Nurse Practitioner Family
DX: I42.9 Cardiomyopathy, unspecified (principal); R06.09 Other forms of dyspnea
CPT/HCPCS: 93306

== ENCOUNTER → 2020-10-29 14:18 | Outpatient (CLI) | payer MEDICARE, BC, SELFPAY ==
[2020-10-31 14:32] LABS: Alpha-1-Antitrypsin 191 mg/dL (101-187)
== END ==
PROVIDERS: Visit Provider Internal Medicine Pulmonary Disease
DX: J44.9 Chronic obstructive pulmonary disease, unspecified (principal)
CPT/HCPCS: 36415; 82103

== ENCOUNTER → 2021-01-07 09:30 | Outpatient (CLI) | payer MEDICARE, BC, SELFPAY ==
[2021-01-07 10:05] VITALS: PULSE 80; PULSE 82
== END ==
PROVIDERS: PCP Emergency Medicine; Visit Provider Internal Medicine Pulmonary Disease
DX: J44.9 Chronic obstructive pulmonary disease, unspecified (principal)
CPT/HCPCS: 94060

== ENCOUNTER → 2021-09-26 09:59 | Outpatient (CLI) | payer MEDICARE, BC, SELFPAY ==
[2021-09-26 11:46] LABS: Alanine Aminotransferase 18 U/L (12-78); Albumin Level 4.1 g/dl (3.5-5.0); Alkaline Phosphatase 98 U/L (38-126); Aspartate Amino Transferase 21 U/L (17-59); Bilirubin,Direct 0.2 mg/dl (0.0-0.4); Bilirubin,Indirect 0.6 mg/dL (0.0-0.9); Bilirubin,Total 0.8 mg/dl (0.2-1.3); Bilirubin,Unconjugated 0.6 mg/dL (0.0-1.1); Chol/HDL Ratio 6.5 (1-3.5); Cholesterol 169 mg/dl (140-200); HDL Cholesterol 26 mg/dl (40-60); Total Protein,Serum 7.3 g/dl (6.3-8.2); Triglycerides 84 mg/dl (30-150); VLDL Cholesterol 17 mg/dL (0-40)
[2021-09-26 11:57] LABS: Direct LDL Cholesterol 142.34 mg/dL (100-129)
== END ==
PROVIDERS: Visit Provider Nurse Practitioner Family
DX: I25.10 Atherosclerotic heart disease of native coronary artery without angina pectoris (principal); I42.9 Cardiomyopathy, unspecified; I51.89 Other ill-defined heart diseases; J44.1 Chronic obstructive pulmonary disease with (acute) exacerbation
CPT/HCPCS: 36415; 80061; 80076

== ENCOUNTER → 2021-11-26 19:56 | Outpatient (CLI) | payer MEDICARE, BC, SELFPAY ==
[2021-11-26 20:11] LABS: Coronavirus 19, PCR Not Detected (NotDetected); Influenza A, PCR Not Detected (NotDetected); Influenza B, PCR Not Detected (NotDetected)
== END ==
PROVIDERS: PCP Emergency Medicine; Visit Provider Nurse Practitioner Family
DX: Z01.812 Encounter for preprocedural laboratory examination (principal); Z11.52 Encounter for screening for COVID-19
CPT/HCPCS: C9803; U0003; U0005

== ENCOUNTER → 2021-11-27 20:05 | Outpatient (CLI) | payer MEDICARE, BC, SELFPAY | PROVIDERS: PCP Emergency Medicine; Visit Provider Nurse Practitioner Family | DX: G47.33 Obstructive sleep apnea (adult) (pediatric) (principal); G47.36 Sleep related hypoventilation in conditions classified elsewhere | CPT/HCPCS: 95811 ==

== ENCOUNTER → 2022-02-04 15:31 | Outpatient (CLI) | payer MEDICARE, BC, SELFPAY | PROVIDERS: PCP Emergency Medicine; Visit Provider Internal Medicine Pulmonary Disease | DX: R06.00 Dyspnea, unspecified (principal) | CPT/HCPCS: 94762 ==

== ENCOUNTER 2022-10-03 18:25 | Emergency (ER) | payer MEDICARE, BC, SELFPAY ==
[2022-10-03 18:40] VITALS: BP 114/70; PULSE 68; RESP 18; TEMP 36.9; O2SAT 95; BMI 43.2
--- NOTE | 2022-10-03 18:40 | HMH.EDGENADL ---
Discharge Plan Disposition Patient Disposition: Home, Self-Care Condition: Good Prescriptions Prescriptions: New cephalexin 500 mg capsule 500 mg PO QID 10 Days Qty: 40 0RF No Action aspirin [Adult Aspirin Regimen] 81 mg tablet,delayed release (DR/EC) 81 mg PO DAILY Qty: 90 3RF bisoprolol fumarate 10 mg tablet See Rx Instructions .ROUTE .COMPLEX Qty: 90 3RF Dose Instruction: TAKE ONE TABLET BY MOUTH EVERY DAY Rx Instructions: TAKE ONE TABLET BY MOUTH EVERY DAY furosemide 20 mg tablet See Rx Instructions .ROUTE .COMPLEX Qty: 90 3RF Dose Instruction: TAKE ONE TABLET BY MOUTH EVERY DAY Rx Instructions: TAKE ONE TABLET BY MOUTH EVERY DAY lisinopril 5 mg tablet See Rx Instructions .ROUTE .COMPLEX Qty: 90 3RF Dose Instruction: TAKE ONE TABLET BY MOUTH EVERY DAY Rx Instructions: TAKE ONE TABLET BY MOUTH EVERY DAY spironolactone 25 mg tablet See Rx Instructions .ROUTE .COMPLEX Qty: 90 3RF Dose Instruction: TAKE ONE TABLET BY MOUTH EVERY DAY Rx Instructions: TAKE ONE TABLET BY MOUTH EVERY DAY coenzyme Q10 [Co Q-10] 10 mg capsule 10 mg PO DAILY Anoro Ellipta 62.5-25 mcg/actuation blister with device 1 inh INHALATION DAILY Qty: 60 6RF albuterol sulfate 90 mcg/actuation HFA aerosol inhaler 1 inh INHALATION QID PRN (Reason: shortness of breath or wheezing) Qty: 6.7 12RF rosuvastatin 5 mg tablet See Rx Instructions .ROUTE .COMPLEX Qty: 30 11RF Dose Instruction: TAKE ONE TABLET BY MOUTH EVERY DAY Rx Instructions: TAKE ONE TABLET BY MOUTH EVERY DAY Referrals Follow up/Referrals: Wild Pelayo MD [Primary Care Provider] - See instructions Activity Restrictions/Add. Instructions Additional Instructions/Restrictions: Start taking the antibiotics as soon as possible. They have been called into your pharmacy of choice. Return to the emergency department immediately if you feel worse in any way. Follow-up with a dentist within the next 3 to 4 days. Follow-up with your primary care doctor within about 1 week if you do not notice any improvement. Clinical Impressions Clinical Impression: Cellulitis and abscess of buttock, Dental abscess, Cellulitis Instructions Patient Instructions: Tooth Abscess, DI for Skin Abscess Discharge ED Provider: Alvaro Chamberlain Adult HPI General Chief complaint: Skin/Abscess/Foreign Body Stated complaint: facial swelling, tooth pain Time Seen by Provider: 10/03/22 18:40 Mode of Arrival: Ambulatory Source of Information: Patient Limitations: No Limitations History of Present Illness HPI narrative: The patient presents to the emergency department complaining of 2 items. For 2 days he has a spot on his bottom and since yesterday he has swelling of his right face secondary to a tooth infection. He denies any other symptoms. He denies diabetes. Onset (ago): day(s) (2) Related Data Home Medications Medication Instructions Recorded Confirmed coenzyme Q10 10 mg capsule (Co 10 mg PO DAILY 12/18/21 03/27/22 Q-10) Previous Rx's Medication Instructions Recorded aspirin 81 mg tablet,delayed 81 mg PO DAILY #90 tabs 09/26/21 release (Adult Aspirin Regimen) bisoprolol fumarate 10 mg tablet See Rx Instructions .Route 09/26/21 .COMPLEX #90 tabs furosemide 20 mg tablet See Rx Instructions .Route 09/26/21 .COMPLEX #90 tabs lisinopril 5 mg tablet See Rx Instructions .Route 09/26/21 .COMPLEX #90 tabs spironolactone 25 mg tablet See Rx Instructions .Route 09/26/21 .COMPLEX #90 tabs albuterol sulfate 90 mcg/actuation 1 inh inhalation QID PRN shortness 01/07/22 aerosol inhaler of breath or wheezing #6.7 grams umeclidinium 62.5 mcg-vilanterol 1 inh inhalation DAILY copd #60 ea 01/07/22 25 mcg/actuation powdr for inhalation (Anoro Ellipta) rosuvastatin 5 mg tablet See Rx Instructions .Route 05/19/22 .COMPLEX #30 tabs cephalexin 500 mg capsule 500 mg
[2022-10-03 19:26] VITALS: BP 135/78; PULSE 70; RESP 18; TEMP 36.8; O2SAT 95
== END 2022-10-03 19:28 | disposition home or self-care (01) ==
PROVIDERS: Emergency Provider Emergency Medicine; PCP Emergency Medicine
DX: L03.317 Cellulitis of buttock (principal); L02.31 Cutaneous abscess of buttock; K12.2 Cellulitis and abscess of mouth; F17.210 Nicotine dependence, cigarettes, uncomplicated; Z86.79 Personal history of other diseases of the circulatory system; I25.10 Atherosclerotic heart disease of native coronary artery without angina pectoris; I42.9 Cardiomyopathy, unspecified; I45.19 Other right bundle-branch block; Z90.49 Acquired absence of other specified parts of digestive tract; Z83.3 Family history of diabetes mellitus; Z80.9 Family history of malignant neoplasm, unspecified; Z82.49 Family history of ischemic heart disease and other diseases of the circulatory system
CPT/HCPCS: 96372; 99284; J0561

== ENCOUNTER → 2023-01-07 10:45 | Outpatient (CLI) | payer MEDICARE, BC, SELFPAY | PROVIDERS: PCP Nurse Practitioner Family; Visit Provider Nurse Practitioner Family | DX: Z00.00 Encounter for general adult medical examination without abnormal findings (principal) ==

== ENCOUNTER → 2023-01-07 11:00 | Outpatient (CLI) | payer MEDICARE, BC, SELFPAY ==
[2023-01-07 14:40] LABS: Chloride 96 mmol/L (98-107); Potassium 4.7 mmoL/L (3.5-5.1); Sodium 136 mmol/L (136-145)
[2023-01-07 14:42] LABS: Alanine Aminotransferase 20 U/L (12-78); Aspartate Amino Transferase 24 U/L (17-59); Blood Urea Nitrogen 9 mg/dl (9-20); Estimated Glomerular Filt Rate 176 ml/min (>60); GFR (African American) 213 ML/MIN (>60)
[2023-01-07 14:43] LABS: Albumin Level 3.6 g/dl (3.5-5.0); Albumin/Globulin Ratio 1.1 (1.1-1.8); Alkaline Phosphatase 128 U/L (38-126); Anion Gap 15.7 mEq/L (5-15); Bilirubin,Total 0.8 mg/dl (0.2-1.3); Calcium 8.3 mg/dl (8.4-10.2); Carbon Dioxide 29 mmol/L (22.0-30.0); Chol/HDL Ratio 6.9 (1-3.5); Cholesterol 137 mg/dl (140-200); Globulin 3.2 g/dL (1.3-3.2); Glucose 123 mg/dl (74-100); HDL Cholesterol 20 mg/dl (40-60); Total Protein,Serum 6.8 g/dl (6.3-8.2); Triglycerides 120 mg/dl (30-150); VLDL Cholesterol 24 mg/dL (0-40)
[2023-01-07 14:57] LABS: Direct LDL Cholesterol 108.49 mg/dL (100-129)
[2023-01-07 14:59] LABS: Basophils # 0.1 K/mm3 (0-0.2); Basophils % 0.4 % (0.1-2.0); Eosinophils # 0.4 K/mm3 (0.0-0.4); Eosinophils % 3.1 % (0.1-12.0); Hematocrit 56.3 % (42.0-52.0); Hemoglobin 17.3 g/dL (14.1-18.0); Lymphocytes # 2.5 K/mm3 (0.7-4.5); Lymphocytes % 19.2 % (10-50); Mean Corpuscular HGB Conc 30.8 g/dL (31.8-35.4); Mean Corpuscular Volume 91.1 fl (80-94); Mean Platelet Volume 8.1 fl (7.4-10.4); Monocytes # 1.1 K/mm3 (0.1-1.0); Monocytes % 8.2 % (1.7-9.3); Neutrophils % 69.1 % (37.0-80.0); Platelet Count 311 K/mm3 (142-424); Red Blood Count 6.18 M/mm3 (4.60-6.20); Red Cell Distribution Width 13.3 % (11.5-17.5)
[2023-01-07 15:05] LABS: 25-OH Vitamin D, Total < 12.8 ng/mL (30-100)
[2023-01-07 15:13] LABS: Prostate Specific Ag Screen 0.7 ng/ml (0.0-4.0)
== END ==
PROVIDERS: PCP Nurse Practitioner Family; Visit Provider Nurse Practitioner Family
DX: I10 Essential (primary) hypertension (principal); Z12.5 Encounter for screening for malignant neoplasm of prostate; E55.9 Vitamin D deficiency, unspecified; Z79.899 Other long term (current) drug therapy
CPT/HCPCS: 80053; 80061; 82306; 84443; 85025; G0103

== ENCOUNTER 2023-02-18 09:26 | Emergency (ER) | payer MEDICARE, SELFPAY ==
--- NOTE | 2023-02-18 09:30 | XR_ITS ---
FINAL REPORT CLINICAL HISTORY: SLIPPED AND INJURED LEFT SECOND TOE x 2 days ago COMPARISON: None FINDINGS: LEFT FOOT: Three views of the left foot were obtained. There is no acute fracture or dislocation. There is mild degenerative change. Posterior calcaneal spur is noted. Forefoot soft tissue swelling is present IMPRESSION: No acute bony abnormality. Reviewed, Interpreted and Dictated by Rylan Cruz III, MD Transcribed by Christy Mejia Authenticated and [facility]
[2023-02-18 09:35] VITALS: BP 110/70; PULSE 76; RESP 18; TEMP 36.6; O2SAT 98; BMI 41.5
--- NOTE | 2023-02-18 09:44 | EXP.UTC ---
Discharge Plan Disposition Patient Disposition: Home, Self-Care Condition: Good Prescriptions Prescriptions: No Action coenzyme Q10 [Co Q-10] 10 mg capsule 10 mg PO DAILY albuterol sulfate 90 mcg/actuation HFA aerosol inhaler 1 inh INHALATION QID PRN (Reason: shortness of breath or wheezing) Qty: 6.7 12RF amlodipine 5 mg tablet 5 mg PO DAILY rosuvastatin 5 mg tablet See Rx Instructions .ROUTE .COMPLEX Qty: 30 11RF Dose Instruction: TAKE ONE TABLET BY MOUTH EVERY DAY Rx Instructions: TAKE ONE TABLET BY MOUTH EVERY DAY spironolactone 25 mg tablet See Rx Instructions .ROUTE .COMPLEX Qty: 90 3RF Dose Instruction: TAKE ONE TABLET BY MOUTH EVERY DAY Rx Instructions: TAKE ONE TABLET BY MOUTH EVERY DAY furosemide 20 mg tablet See Rx Instructions .ROUTE .COMPLEX Qty: 90 3RF Dose Instruction: TAKE ONE TABLET BY MOUTH EVERY DAY Rx Instructions: TAKE ONE TABLET BY MOUTH EVERY DAY bisoprolol fumarate 10 mg tablet See Rx Instructions .ROUTE .COMPLEX Qty: 90 3RF Dose Instruction: TAKE ONE TABLET BY MOUTH EVERY DAY Rx Instructions: TAKE ONE TABLET BY MOUTH EVERY DAY cholecalciferol (vitamin D3) 50 mcg (2,000 unit) capsule 50 mcg PO DAILY Qty: 30 4RF cholecalciferol (vitamin D3) 1,250 mcg (50,000 unit) tablet 1,250 mcg PO WEEKLY Qty: 7 2RF Anoro Ellipta 62.5-25 mcg/actuation blister with device 1 inh INHALATION DAILY Qty: 60 6RF Referrals Follow up/Referrals: Michael Stewart APRN [Primary Care Provider] - See instructions Activity Restrictions/Add. Instructions Additional Instructions/Restrictions: *weight bearing as tolerated *RICE, Rest the extremity, Ice 15-20 minutes 3-4 times daily, Compress- wear the benoit wrap as discussed as much as possible to help reduce swelling and pain, Elevate the extremity when at rest *Post Op Shoe is for support and help control swelling, use it except in the shower. Be sure that is not to tight but not to loose either *Elevate when resting? *Ibuprofen 600-800mg every 6-8 hours as needed for pain an inflammation if you can take it. If need something more can take Tylenol in between doses of Ibuprofen to help Immediately follow up with your family doctor for new or worsening of symptoms, or no noticeable improvement over the next 3-5 days Clinical Impressions Clinical Impression: Injury of toe Qualifiers: Encounter type: initial encounter Laterality: left Qualified Code(s): S99.922A - Unspecified injury of left foot, initial encounter Instructions Patient Instructions: Toe Sprain, How To Perform RICE (Rest, Ice, Compress, Elevate), DI for Toe Sprain Discharge ED Provider: Aria Patterson [facility] HPI General Stated complaint: AO6/9@home pain in Lt toe Mode of Arrival: Ambulatory Source of Information: Patient Limitations: No Limitations Time Seen by Provider: 02/18/23 09:44 Description of Symptoms (Recalled from Triage Doc. by RN): PATIENT C/O POSSIBLE DISLOCATION OF LEFT SECOND TOE AFTER HE SLIPPED AND BENT THE TOE ON THURSDAY HEENT Symptoms (Recalled from RN notes): No Resp Symptoms (Recalled from RN notes): No Skin Symptoms (Recalled from RN notes): No MS Symptoms (Recalled from RN notes): Yes Functional Status (Recalled from RN notes): WNL History of Present Illness Provider Complaint: Patient states that on Thursday he was walking and he slipped on the floor and bent his left second toe under his foot the wrong way and worried he may have dislocated it States that he has been having swelling and bruising so today he came in to get it checked Related Data Home Medications Medication Instructions Recorded Confirmed coenzyme Q10 10 mg capsule (Co 10 mg PO DAILY 12/18/21 02/18/23 Q-10) amlodipine 5 mg tablet 5 mg PO DAILY 01/07/23 02/18/23 Previous Rx's Medication Instructions Recorded albuterol sulfate 90 mcg/actuation 1 inh inhalation QID PRN shortness 01/07/22 aerosol inh
[2023-02-18 10:53] VITALS: BP 110/70; PULSE 76; RESP 18; TEMP 36.6; O2SAT 98
== END 2023-02-18 11:22 | disposition home or self-care (01) ==
PROVIDERS: Emergency Provider Nurse Practitioner; PCP Nurse Practitioner Family
DX: S99.922A Unspecified injury of left foot, initial encounter (principal); I25.10 Atherosclerotic heart disease of native coronary artery without angina pectoris; I42.9 Cardiomyopathy, unspecified; J43.9 Emphysema, unspecified; G47.30 Sleep apnea, unspecified; F17.210 Nicotine dependence, cigarettes, uncomplicated; W01.0XXA Fall on same level from slipping, tripping and stumbling without subsequent striking against object, initial encounter
CPT/HCPCS: 73630; 99203; 99204; 99212; G0463

== ENCOUNTER 2023-03-30 23:13 | Inpatient (IN) | payer MEDICARE, SELFPAY ==
[2023-03-30 23:14] VITALS: BP 126/59; PULSE 100; RESP 22; TEMP 36.8; O2SAT 85; BMI 45.3
--- NOTE | 2023-03-30 23:23 | PC.NURSE ---
Dr. Montes at BS
--- NOTE | 2023-03-30 23:29 | XR_ITS ---
PROCEDURE INFORMATION: Exam: XR Chest Exam date and time: 03/30/2023 11:39 PM Age: 52 years old Clinical indication: Shortness of breath; Additional info: SOA TECHNIQUE: Imaging protocol: Radiologic exam of the chest. Views: 1 view. COMPARISON: CR (CHEST, CXR AP LANDSCAPE) 09/12/2018 19:41 FINDINGS: Lungs: Mild pulmonary venous congestion. Bibasilar atelectasis. Pleural spaces: Unremarkable. No pleural effusion. No pneumothorax. Heart/Mediastinum: Cardiomegaly. Bones/joints: Unremarkable. IMPRESSION: Mild pulmonary venous congestion.
--- NOTE | 2023-03-30 23:30 | ECG_ITS ---
APPROVED REPORT Exam: Resting ECG HR:98 bpm ECG Measurements Heart Rate 98 AXES VA 188 P 60 QRSd 99 QRS 251 QT 351 T 82 QTc 406 Conclusion SINUS RHYTHM Bi-atrial abnormality PATTERN CONSISTENT WITH PULMONARY DISEASE INCOMPLETE RIGHT BUNDLE BRANCH BLOCK [90+ ms QRS DURATION, TERMINAL R IN V1/V2, 40+ ms S IN I/aVL/V4/V5/V6] RIGHT VENTRICULAR HYPERTROPHY Old septal changes ABNORMAL ECG UNCONFIRMED REPORT Electronically signed by : Brandon Boggs MD 03/31/2023 21:15:27
--- NOTE | 2023-03-30 23:33 | PC.NURSE ---
RT at BS to administer breathing treatment
--- NOTE | 2023-03-30 23:36 | PC.NURSE ---
Spoke to Adenike with [facility] to verify antibiotics
--- NOTE | 2023-03-30 23:37 | HMH.EDGENADL ---
Discharge Plan Disposition Patient Disposition: Admitted Condition: Fair Chief Complaint: Shortness of Breath/Dyspnea Prescriptions Prescriptions: No Action albuterol sulfate 90 mcg/actuation HFA aerosol inhaler 1 inh INHALATION QID PRN (Reason: shortness of breath or wheezing) Qty: 6.7 12RF Anoro Ellipta 62.5-25 mcg/actuation blister with device 1 inh INHALATION DAILY Qty: 60 6RF amlodipine 5 mg tablet 5 mg PO DAILY spironolactone 25 mg tablet See Rx Instructions .ROUTE .COMPLEX Rx Instructions: TAKE ONE TABLET BY MOUTH EVERY DAY bisoprolol fumarate 10 mg tablet See Rx Instructions .ROUTE .COMPLEX Rx Instructions: TAKE ONE TABLET BY MOUTH EVERY DAY furosemide 20 mg tablet See Rx Instructions .ROUTE .COMPLEX Rx Instructions: TAKE ONE TABLET BY MOUTH EVERY DAY rosuvastatin 5 mg tablet See Rx Instructions .ROUTE .COMPLEX Rx Instructions: TAKE ONE TABLET BY MOUTH EVERY DAY Clinical Impressions Clinical Impression: Acute exacerbation of chronic obstructive pulmonary disease, Preseptal cellulitis, Acute bacterial conjunctivitis Discharge ED Provider: Sam Montes General Adult HPI General Chief complaint: Shortness of Breath/Dyspnea Stated complaint: Eye swollen, SOA Time Seen by Provider: 03/30/23 23:16 Mode of Arrival: Wheelchair Source of Information: Patient and Significant Other Limitations: No Limitations Description of Symptoms (Recalled from ER Triage Doc. by RN): Pt presents with complaints of right swolen eyelid, when hooked up to monitor his oxygenation is 73%. Pt does not wear home, hx of COPD. Placed on 4l/nc Dr at bedside. History of Present Illness HPI narrative: Patient is a 52-year-old male with past medical history of sleep apnea, COPD only on nocturnal O2, coronary artery disease, tobacco dependence who presents emergency department for evaluation of eye swelling. Onset was acute, occurring over the last 24 hours, right-sided with associated drainage from both eyes. Patient does not wear contacts or have corrective vision. When hooked up to oxygen monitor his saturation was noted to be approximately 70% when asked if he was short of breath he states that he has had progressive shortness of breath over the last month, has chronic cough that is no worse than baseline. Patient denies chest pain, abdominal pain, other acute complaints at this time. He does state that he ran out of his Anoro Ellipta at home however only takes daily albuterol. Related Data Home Medications Medication Instructions Recorded Confirmed amlodipine 5 mg tablet 5 mg PO DAILY CAD 03/31/23 03/31/23 bisoprolol fumarate 10 mg tablet See Rx Instructions .Route 03/31/23 03/31/23 .COMPLEX HTN furosemide 20 mg tablet See Rx Instructions .Route 03/31/23 03/31/23 .COMPLEX CHF rosuvastatin 5 mg tablet See Rx Instructions .Route 03/31/23 03/31/23 .COMPLEX Cholesterol spironolactone 25 mg tablet See Rx Instructions .Route 03/31/23 03/31/23 .COMPLEX CHF Previous Rx's Medication Instructions Recorded albuterol sulfate 90 mcg/actuation 1 inh inhalation QID PRN shortness 01/07/22 aerosol inhaler of breath or wheezing #6.7 grams umeclidinium 62.5 mcg-vilanterol 1 inh inhalation DAILY copd #60 ea 03/12/23 25 mcg/actuation powdr for inhalation (Anoro Ellipta) Allergies Allergy/AdvReac Type Severity Reaction Status Date / Time aspirin AdvReac Mild nausea Verified 03/12/23 15:18 [facility] Disclaimer: The information contained in this section may have been updated after the patient was seen, as this information can be updated by other users. Medical History (Updated 03/31/23 @ 01:31 by Sam Montes MD) Abnormal EKG Abnormal stress test CAD (coronary artery disease) Cardiomyopathy Dyspnea Dyspnea on exertion History of sleep apnea LV dysfunction Nocturnal hypoxemia Pulmonary emphysema Right bundle branch block (RBBB) Shortbj
[2023-03-30 23:42] LABS: VBG Base Excess 11.8 mmol/L (-2.4-2.3); VBG HCO3 37.9 mmol/L (23-30); VBG Oxygen Saturation 66.7 % (50-70); VBG PCO2 75.2 mmol/L (35-51); VBG PH 7.32 mmol/L (7.31-7.41); VBG Total CO2 40.2 mmol/L (23-27)
--- NOTE | 2023-03-30 23:42 | PC.NURSE ---
RAD at for CXR
[2023-03-30 23:50] LABS: Alanine Aminotransferase 15 U/L (12-78); Albumin Level 3.7 g/dl (3.5-5.0); Albumin/Globulin Ratio 0.9 (1.1-1.8); Alkaline Phosphatase 108 U/L (38-126); Aspartate Amino Transferase 24 U/L (17-59); Bilirubin,Total 1.3 mg/dl (0.2-1.3); Blood Urea Nitrogen 5 mg/dl (9-20); Calcium 8.6 mg/dl (8.4-10.2); Chloride 94 mmol/L (98-107); Creatinine Clearance Estimated 157 mL/min (50-200); Estimated Glomerular Filt Rate 143 ml/min (>60); GFR (African American) 173 ML/MIN (>60); Globulin 3.9 g/dL (1.3-3.2); Glucose 131 mg/dl (74-100); Potassium 3.6 mmoL/L (3.5-5.1); Sodium 139 mmol/L (136-145); Total Protein,Serum 7.6 g/dl (6.3-8.2)
[2023-03-30 23:55] VITALS: PULSE 93; PULSE 95
[2023-03-30 23:55] LABS: D-Dimer 0.71 ug/mL (0.0-0.5)
[2023-03-30 23:58] LABS: Anion Gap 8.6 mEq/L (5-15); Carbon Dioxide 40 mmol/L (22.0-30.0)
[2023-03-31] VITALS (13 sets, daily range): BP systolic 122–160; BP diastolic 65–89; PULSE 79–95; RESP 18–23; TEMP 36.4–37.2; O2SAT 92–98; BMI 45.5
[2023-03-31 00:04] LABS: NT Pro Brain Natriuretic Pep. 981 pg/mL (0-125); Troponin I < 0.01 ng/ml (0.00-0.034)
[2023-03-31 00:06] LABS: Basophils # 0.1 K/mm3 (0-0.2); Basophils % 0.7 % (0.1-2.0); Eosinophils # 0.3 K/mm3 (0.0-0.4); Eosinophils % 2.5 % (0.1-12.0); Hematocrit 59.8 % (42.0-52.0); Hemoglobin 17.6 g/dL (14.1-18.0); Lymphocytes # 1.6 K/mm3 (0.7-4.5); Lymphocytes % 15.7 % (10-50); Mean Corpuscular HGB Conc 29.4 g/dL (31.8-35.4); Mean Corpuscular Hemoglobin 26.6 pg (27.0-31.2); Mean Corpuscular Volume 90.4 fl (80-94); Mean Platelet Volume 8.1 fl (7.4-10.4); Monocytes # 1.4 K/mm3 (0.1-1.0); Monocytes % 13.8 % (1.7-9.3); Neutrophils # 6.9 K/mm3 (1.8-7.8); Neutrophils % 67.4 % (37.0-80.0); Platelet Count 258 K/mm3 (142-424); Red Blood Count 6.62 M/mm3 (4.60-6.20); Red Cell Distribution Width 14.7 % (11.5-17.5); White Blood Count 10.2 K/mm3 (4.8-10.8)
--- NOTE | 2023-03-31 00:06 | CT_ITS ---
PROCEDURE INFORMATION: Exam: CTA Chest With Contrast Exam date and time: 03/31/2023 12:24 AM Age: 52 years old Clinical indication: Condition or disease; Lung condition and disease; Hypoxia; Additional info: Tachycardia/hypoxia TECHNIQUE: Imaging protocol: Computed tomographic angiography of the chest with contrast. Exam focused on the arteries. 3D rendering (Not supervised by radiologist): MIP and/or 3D reconstructed images were created by the technologist. Radiation optimization: All CT scans at this facility use at least one of these dose optimization techniques: automated exposure control; mA and/or kV adjustment per patient size (includes targeted exams where dose is matched to clinical indication); or iterative reconstruction. Contrast material: ISOVUE; Contrast volume: 70 ml; Contrast route: INTRAVENOUS (IV); REPORTING DATA: Count of CT and Cardiac NM exams in prior 12 months: This patient has received 0 known CTs and 0 known cardiac nuclear medicine studies in the 12 months prior to the current study. COMPARISON: CR XR CHEST PORTABLE 30/03/2023 23:39 FINDINGS: Pulmonary arteries: No pulmonary emboli. Enlarged pulmonary arteries likely represent chronic pulmonary arterial hypertension. Aorta: Unremarkable. No aortic aneurysm. No aortic dissection. Lungs: Interlobular septal thickening most likely represents pulmonary venous congestion. Mild scarring and atelectasis in the lower lungs. Mosaic attenuation of the lungs is nonspecific, but suggests small airway disease. Nodular opacity in left upper lobe measuring 7 mm on image 19 series 5 as punctate calcification is most likely a granuloma. Pleural spaces: Unremarkable. No pneumothorax. No pleural effusion. Heart: Unremarkable. No cardiomegaly. No pericardial effusion. Lymph nodes: Unremarkable. No enlarged lymph nodes. Liver: Hepatic steatosis. Spleen: The spleen is partially imaged, but is most likely enlarged. Bones/joints: Unremarkable. No acute fracture. Soft tissues: Bilateral gynecomastia. Intramuscular lipoma in the left rotator cuff muscles. IMPRESSION: 1. No pulmonary emboli. 2. Interlobular septal thickening most likely represents pulmonary venous congestion. 3. Mosaic attenuation of the lungs is nonspecific, but suggests small airway disease. Please correlate for evidence of asthma or bronchiolitis. 4. Hepatic steatosis.
--- NOTE | 2023-03-31 00:07 | PC.NURSE ---
Visual Acuity Both: 20/25 Left: 20/25 Right: 20/40
--- NOTE | 2023-03-31 00:08 | CT_ITS ---
PROCEDURE INFORMATION: Exam: CT Orbits With Contrast Exam date and time: 03/31/2023 12:32 AM Age: 52 years old Clinical indication: Screening exam; Periorbital vs orbital cellulitis TECHNIQUE: Imaging protocol: Computed tomography of the orbits with contrast. Radiation optimization: All CT scans at this facility use at least one of these dose optimization techniques: automated exposure control; mA and/or kV adjustment per patient size (includes targeted exams where dose is matched to clinical indication); or iterative reconstruction. Contrast material: ISOVUE; Contrast volume: 75 ml; Contrast route: IV; REPORTING DATA: Count of CT and Cardiac NM exams in prior 12 months: This patient has received 0 known CTs and 0 known cardiac nuclear medicine studies in the 12 months prior to the current study. COMPARISON: No relevant prior studies available. FINDINGS: Paranasal sinuses: Small amount of secretions in the paranasal sinuses. Orbital cavities: See Soft tissues finding. Dental: Multiple dental cavities with periapical lucencies that likely represent dental infection. Bones/joints: No acute fracture. Soft tissues: There is mild right periorbital edema. This is preseptal in location. There is no intraorbital spread of infection. IMPRESSION: 1. There is mild right periorbital edema. This is preseptal in location. There is no intraorbital spread of infection. 2. Small amount of secretions in the paranasal sinuses. Please exclude infection. 3. Multiple dental cavities with periapical lucencies that likely represent dental infection.
--- NOTE | 2023-03-31 00:16 | PC.NURSE ---
Pt gone to RAD
--- NOTE | 2023-03-31 01:28 | PC.NURSE ---
Addendum entered by Elliott Villagomez RN 03/31/23 01:29: Acute not OBS Original Note: Pt assigned to room 202 for COPD Exa. to the hospitalist. OBS
--- NOTE | 2023-03-31 02:07 | PC.NURSE ---
pt to floor via wheelchair at this time.
--- NOTE | 2023-03-31 02:27 | EXP.HP ---
History of Present Illness *Admission Date: 03/31/23 *Reason for visit:: right eye conjuntivitis/SOB *History of present illness: This is a 52-year-old male with PMHx of sleep apnea, COPD only on nocturnal O2, coronary artery disease, HTN, morbid obesity and tobacco dependence who presents emergency department for evaluation of eye swelling and discharge. Onset was acute, occurring over the last 24 hours, right-sided with associated drainage from both eyes. Patient does not wear contacts or have corrective vision. During his ER evaluation his saturation was noted to be approximately 70% when asked if he was short of breath he states that he has had progressive shortness of breath over the last month, has chronic cough that is no worse than baseline. Patient denies chest pain, abdominal pain, other acute complaints at this time. He does state that he ran out of his Anoro Ellipta at home however only takes daily albuterol. Admitted for further treatment. [facility] Disclaimer: The information contained in this section may have been updated after the patient was seen, as this information can be updated by other users. Medical History (Updated 03/31/23 @ 02:55 by Rui Womack APRN) Abnormal EKG Abnormal stress test CAD (coronary artery disease) Cardiomyopathy Dyspnea Dyspnea on exertion History of sleep apnea LV dysfunction Nocturnal hypoxemia Pulmonary emphysema Right bundle branch block (RBBB) Shortness of breath Sleep apnea Tobacco abuse counseling Tobacco abuse disorder Tobacco dependence syndrome Surgical History History of cardiac cath History of colonoscopy History of tonsillectomy Family History Other Cancer Diabetes Hypertension Social History (Updated 03/31/23 @ 02:51 by Cathleen Villarreal RN) Smoking Status: Current every day smoker tobacco type: cigarettes packs per day: 1 alcohol intake: never counseling provided: none substance use type: denies use current occupational status: disabled Travel in the last 8 weeks: Inside the [place] household members: none housing: other caffeine: Yes Review of Systems Review of Systems Review of systems:: pertinent systems reviewed and negative unless documented below Meds Home Medications and Allergies Home Medications Medication Instructions Recorded Confirmed Type albuterol sulfate 90 mcg/actuation 1 inh inhalation QID PRN COPD 03/31/23 03/31/23 History aerosol inhaler amlodipine 5 mg tablet 5 mg PO DAILY Blood Pressure 03/31/23 03/31/23 History bisoprolol fumarate 10 mg tablet 10 mg PO DAILY Blood Pressure 03/31/23 03/31/23 History furosemide 20 mg tablet 20 mg PO DAILY Fluid 03/31/23 03/31/23 History rosuvastatin 5 mg tablet 5 mg PO DAILY Cholesterol 03/31/23 03/31/23 History spironolactone 25 mg tablet 25 mg PO DAILY Fluid 03/31/23 03/31/23 History umeclidinium 62.5 mcg-vilanterol 1 inh inhalation DAILY COPD 03/31/23 03/31/23 History 25 mcg/actuation powdr for inhalation (Anoro Ellipta) New Prescriptions to Start Prescriptions: Allergies Allergy/AdvReac Type Severity Reaction Status Date / Time aspirin AdvReac Mild nausea Verified 03/12/23 15:18 Exam Data for Last 24 hours Vital signs and Labs for Last 24 Hours: Temp Pulse Resp BP Pulse Ox O2 Del Method O2 Flow Rate 98.8 F 94 H 19 139/75 92 L Nasal Cannula 4 03/31/23 02:00 03/31/23 02:00 03/31/23 02:00 03/31/23 02:00 03/31/23 02:00 03/31/23 02:00 03/31/23 02:00 Laboratory Results - last 24 hr 03/30/23 23:28: WBC 10.2, RBC 6.62 H, Hgb 17.6, Hct 59.8 H, MCV 90.4, MCH 26.6 L, MCHC 29.4 L, RDW 14.7, Plt Count 258, MPV 8.1, Neut % (Auto) 67.4, Lymph % (Auto) 15.7, Lincoln % (Auto) 13.8 H, Eos % (Auto) 2.5, Baso % (Auto) 0.7, Neut # (Auto) 6.9, Lymph # (Auto) 1.6, Lincoln # (Auto) 1.4 H, Eos # (Auto) 0.3, Baso # (Auto) 0.1, D-Dime
[2023-03-31 03:30] LABS: Troponin I < 0.01 ng/ml (0.00-0.034)
--- NOTE | 2023-03-31 05:12 | PC.NURSE ---
Since arriving to floor. Patient has rested in bed. Patient is on Bipap to sleep. will be on 4L NC when awake. No other issues have been noted by patient
[2023-03-31 06:15] LABS: POC Glucose,Bedside 171 (70-110)
[2023-03-31 06:25] LABS: Basophils % 0.3 % (0.1-2.0); Eosinophils % 0.3 % (0.1-12.0); Hematocrit 59.5 % (42.0-52.0); Hemoglobin 17.9 g/dL (14.1-18.0); Lymphocytes # 0.4 K/mm3 (0.7-4.5); Lymphocytes % 4.8 % (10-50); Mean Corpuscular HGB Conc 30.1 g/dL (31.8-35.4); Mean Corpuscular Hemoglobin 27.1 pg (27.0-31.2); Mean Corpuscular Volume 90.1 fl (80-94); Mean Platelet Volume 7.7 fl (7.4-10.4); Monocytes # 0.5 K/mm3 (0.1-1.0); Monocytes % 5.7 % (1.7-9.3); Neutrophils % 88.8 % (37.0-80.0); Platelet Count 253 K/mm3 (142-424); Red Cell Distribution Width 14.6 % (11.5-17.5)
[2023-03-31 06:26] LABS: MANUAL DIFFERENTIAL MANUAL DIFFERENTIAL (MANUAL DIFF); Troponin I < 0.01 ng/ml (0.00-0.034)
[2023-03-31 06:42] LABS: Alanine Aminotransferase 21 U/L (12-78); Albumin Level 3.7 g/dl (3.5-5.0); Albumin/Globulin Ratio 1.1 (1.1-1.8); Alkaline Phosphatase 101 U/L (38-126); Aspartate Amino Transferase 26 U/L (17-59); Bilirubin,Total 0.9 mg/dl (0.2-1.3); Blood Urea Nitrogen 5 mg/dl (9-20); Calcium 8.1 mg/dl (8.4-10.2); Chloride 93 mmol/L (98-107); Creatinine Clearance Estimated 183 mL/min (50-200); Estimated Glomerular Filt Rate 176 ml/min (>60); GFR (African American) 213 ML/MIN (>60); Globulin 3.5 g/dL (1.3-3.2); Glucose 193 mg/dl (74-100); Magnesium 1.5 mg/dl (1.6-2.3); Potassium 3.9 mmoL/L (3.5-5.1); Sodium 140 mmol/L (136-145); Total Protein,Serum 7.2 g/dl (6.3-8.2)
[2023-03-31 06:48] LABS: Anion Gap 12.9 mEq/L (5-15); Carbon Dioxide 38 mmol/L (22.0-30.0)
[2023-03-31 07:14] LABS: Lymphocytes % 5 % (10-50); Monocytes % 1 % (2-9); Neutrophils % 94 % (42-76); Platelet Estimate Normal; RBC Morphology Normal; Total Cells Counted 100
--- NOTE | 2023-03-31 07:15 | HMH.PHAINT1 ---
Pharmacy Intervention Comments: Patient's home medications reviewed and verified with external pharmacy and patient. -Melchor Reece, Pharm Student
[2023-03-31 07:35] LABS: ABG Base Excess 8.8 mmol/L (-2.4-2.3); ABG HCO3 35.8 mmhg (22.0-26.0); ABG Oxygen Saturation 91 % (90-100); ABG PH 7.26 mmol/L (7.35-7.45); ABG PO2 62.3 mmhg (80-100); ABG TCO2 38.3 mmhg (23-27)
[2023-03-31 07:38] LABS: Allen's Test Acceptable; Oxygen 4 LPM NC %; Source Right Radial
[2023-03-31 07:40] LABS: ABG PCO2 81.7 mmhg (35.0-45.0)
--- NOTE | 2023-03-31 08:16 | PC.NURSE ---
RESP CARE NOTE: Placed pt on 16/6 cmH2O to achieve Vt of 450ml or better, Dr Hyde at bedside for changes. Will continue to monitor patient.
[2023-03-31 11:06] LABS: POC Glucose,Bedside 184 (70-110)
[2023-03-31 11:30] LABS: ABG Base Excess 9.5 mmol/L (-2.4-2.3); ABG HCO3 36.6 mmhg (22.0-26.0); ABG Oxygen Saturation 94 % (90-100); ABG PH 7.26 mmol/L (7.35-7.45); ABG PO2 69.2 mmhg (80-100); ABG TCO2 39.2 mmhg (23-27)
[2023-03-31 11:32] LABS: ABG PCO2 84.1 mmhg (35.0-45.0); Allen's Test Acceptable; Oxygen 45 %; Pressure Support 18/6; Source Left Radial; Vent Rate 20
[2023-03-31 12:01] LABS: Adenovirus,PCR Not Detected (NotDetected); Bordetella Pertussis Not Detected (NotDetected); Chlamydophila Pneumoniae, PCR Not Detected (NotDetected); Coronavirus 19, PCR Not Detected (NotDetected); Coronavirus 229E Not Detected (NotDetected); Coronavirus NL63 Not Detected (NotDetected); Coronavirus OC43 Not Detected (NotDetected); Coronovirus HKU1,PCR Not Detected (NotDetected); Human Metapneumovirus Not Detected (NotDetected); Influenza A, PCR Not Detected (NotDetected); Influenza AH1, 2009 Not Detected (NotDetected); Influenza AH1, PCR Not Detected (NotDetected); Influenza AH3,PCR Not Detected (NotDetected); Influenza B, PCR Not Detected (NotDetected); Mycoplasma Pneumoniae, PCR Not Detected (NotDetected); Parainfluenza 1, PCR Not Detected (NotDetected); Parainfluenza 2, PCR Not Detected (NotDetected); Parainfluenza 3, PCR Not Detected (NotDetected); Parainfluenza 4, PCR Not Detected (NotDetected); Respiratory Syncytial Virus Not Detected (NotDetected); Rhinovirus/Enterovirus Not Detected (NotDetected)
[2023-03-31 16:43] LABS: POC Glucose,Bedside 234 (70-110)
[2023-03-31 17:14] LABS: ABG Base Excess 9.5 mmol/L (-2.4-2.3); ABG HCO3 35.1 mmhg (22.0-26.0); ABG Oxygen Saturation 97 % (90-100); ABG PH 7.35 mmol/L (7.35-7.45); ABG PO2 83.1 mmhg (80-100)
[2023-03-31 17:16] LABS: Oxygen 45 %; Source Left Radial; Vent Rate 22
[2023-03-31 17:17] LABS: ABG PCO2 64.5 mmhg (35.0-45.0)
[2023-03-31 22:52] LABS: POC Glucose,Bedside 213 (70-110)
[2023-04-01] VITALS (9 sets, daily range): BP systolic 128–161; BP diastolic 76–100; PULSE 73–96; RESP 16–26; TEMP 36.3–37.2; O2SAT 92–98; BMI 45.3
--- NOTE | 2023-04-01 04:57 | PC.NURSE ---
Patient has worn bipap most of the night. Took off from roughly 3am to 5am to eat and rest from it. Was put on 4L Nc and O2 stats were within normal limits. No other issues were noted by patient.
[2023-04-01 06:21] LABS: POC Glucose,Bedside 215 (70-110)
[2023-04-01 06:54] LABS: ABG Base Excess 9.1 mmol/L (-2.4-2.3); ABG HCO3 34.9 mmhg (22.0-26.0); ABG Oxygen Saturation 96 % (90-100); ABG PH 7.34 mmol/L (7.35-7.45); ABG PO2 76.5 mmhg (80-100); ABG TCO2 36.9 mmhg (23-27)
[2023-04-01 06:54] LABS: Alanine Aminotransferase 16 U/L (12-78); Albumin Level 3.4 g/dl (3.5-5.0); Albumin/Globulin Ratio 0.9 (1.1-1.8); Alkaline Phosphatase 93 U/L (38-126); Aspartate Amino Transferase 21 U/L (17-59); Bilirubin,Total 0.5 mg/dl (0.2-1.3); Blood Urea Nitrogen 17 mg/dl (9-20); Calcium 8.4 mg/dl (8.4-10.2); Chloride 97 mmol/L (98-107); Creatinine Clearance Estimated 152 mL/min (50-200); Estimated Glomerular Filt Rate 143 ml/min (>60); GFR (African American) 173 ML/MIN (>60); Globulin 3.6 g/dL (1.3-3.2); Glucose 258 mg/dl (74-100); Magnesium 2.1 mg/dl (1.6-2.3); Potassium 4.6 mmoL/L (3.5-5.1); Sodium 139 mmol/L (136-145)
[2023-04-01 06:56] LABS: Vent Rate 22
[2023-04-01 06:57] LABS: Allen's Test Acceptable; Pressure Support 14; Source Left Radial
[2023-04-01 06:59] LABS: ABG PCO2 65.8 mmhg (35.0-45.0)
[2023-04-01 07:01] LABS: Anion Gap 7.6 mEq/L (5-15); Basophils % 0.1 % (0.1-2.0); Carbon Dioxide 39 mmol/L (22.0-30.0); Eosinophils % 0.2 % (0.1-12.0); Hematocrit 59.3 % (42.0-52.0); Lymphocytes # 0.5 K/mm3 (0.7-4.5); Mean Corpuscular HGB Conc 28.7 g/dL (31.8-35.4); Mean Corpuscular Hemoglobin 26.2 pg (27.0-31.2); Mean Corpuscular Volume 91.4 fl (80-94); Monocytes # 1.3 K/mm3 (0.1-1.0); Monocytes % 11.2 % (1.7-9.3); Neutrophils % 84.5 % (37.0-80.0); Platelet Count 257 K/mm3 (142-424); Red Blood Count 6.48 M/mm3 (4.60-6.20); Red Cell Distribution Width 14.5 % (11.5-17.5); White Blood Count 11.9 K/mm3 (4.8-10.8)
--- NOTE | 2023-04-01 07:20 | CA_ITS ---
APPROVED REPORT EXAM: Comprehensive 2D, Doppler, and color-flow Echocardiogram Bilingual Receptionist: ZACARIAS Fernández, RVS Ht: 5 ft 10 in Wt: 323lbs BSA: 2.56 HR: 86 bpm BP: 139/75 mmHg Rhythm: NSR Indications: COPD, CAD, CM, RBBB,Obesity, Smoker, HTN, SOB Echo Enhancing Agent Indication: Endocardial border delineation Agent(s) / Amount(s) Used: Definity 2 cc Comments: Technically difficult exam: due to Extreme body habitus with lung impedance 2D Dimensions IVSd 1.36 cm M: 0.6-1.2 LVEF (Visual) 55.00 % PWd 1.14 cm M: 0.6 - 1.2 LA Volume 112.60 mL LVDd 5.91 cm M: 4.2 - 5.9 LA Volume Index 43.98 mL/m2 (M/F) 16-34 LVDs 4.58 cm M: 2.5 - 4.0 Aortic Root 3.11 cm M: 3.1 - 3.7 Left Atrium 3.84 cm M: 3.0 - 4.0 LVOT 2.03 cm (M/F) 1.5-2.5 M-Mode Dimensions LA Diam 4.61 cm (1.9-4.0) Ao Diam 3.44 cm (2.0-3.7) EPSs 0.99 cm TAPSE 3.25 (<1.7) LV Diastology E Decel Time 217.00 (160-240 msec) E/A Ratio 1.0 MED E' 6.70 (< 7 cm/sec) MED A' 9.40 cm/s E'/MED E' Ratio 18.36 (>14) LAT E' 7.90 (<10 cm/sec) LAT A' 13.00 cm/s E/LAT E' Ratio 15.57 (>14) Aortic Valve LVOT Max 125.00 (70-110 cm/s) LVOT VTI 24.60 cm AoV Peak Enrico. 185.00 (50-130 cm/s) AO Peak GR. 13.70 mmHg AO Mean GR. 6.80 (<5 mmHg) AO VTI 36.09 (18-25 cm) VINCENZO (VTI) 2.21 (2.5-4.5 cm2) Mitral Valve MV E Max Enrico. 123.00 (40-130 cm/s) MV A Velocity 123.00 (40-130 cm/s) E/A Ratio 1.00 MV Decel. Time 217.00 (160-240 ms) Pulmonary Valve PV Peak Velocity 114.00 (50-150 cm/s) Tricuspid Valve TR P. Velocity 299.00 cm/s RAP Estimate 10.00 mmHg RVSP 45.90 mmHg Left Ventricle The left ventricle is normal size. The left ventricular systolic function is normal. The left ventricular ejection fraction is within the normal range. There is increased LV wall thickness There is normal LV segmental wall motion. The left ventricular diastolic function is normal. LVEF is 60%. Right Ventricle Right ventricle is mildly dilated. The right ventricular systolic function is normal. Atria The left atrium size is normal. The right atrium size is normal. There is no Doppler evidence of interatrial shunt Aortic Valve The aortic valve is normal in structure. There is no aortic valvular stenosis. No aortic regurgitation is present. Mitral Valve The mitral valve is normal in structure. There is no mitral valve regurgitation noted. Tricuspid Valve The tricuspid valve leaflets are thin and pliable. Mild tricuspid regurgitation. RVSP is 35-40 mmHg. Pulmonic Valve The pulmonary valve is normal in structure. Mild pulmonic regurgitation. Great Vessels The aortic root is normal in size. Pericardium There is no pericardial effusion. Other Information Study Quality: Adequate Conclusion Normal biventricular systolic function. Mild RV dilatation. No significant valvular disease. Elevated RVSP=35-40 mmHg Electronically signed by : Kimberli Julien, 04/01/2023 12:27:50
--- NOTE | 2023-04-01 13:07 | EXP.ACUTE.PN ---
Subjective *Date: 04/01/23 *Time: 13:07 Interval history: Patient tolerated PAP overnight. Blood gas this morning stable with blood gas yesterday afternoon. Improved PCO2 to 60. Pleasant on exam. Alert and oriented, appears to be at baseline mentation. Weaned to 3 L nasal cannula oxygen during rounds. Denies any chest pain, nausea, vomiting, confusion, dyspnea. Medical Exam Vital signs and Labs for Last 24 Hours: Vital Signs Temp Pulse Resp BP Pulse Ox O2 Del Method O2 Flow Rate 04/01/23 10:59 98.7 F 96 H 18 153/93 H 94 L Nasal Cannula 3 04/01/23 09:00 Nasal Cannula 4 04/01/23 06:30 04/01/23 07:19 97.9 F 75 18 138/86 98 BiPAP 04/01/23 04:00 98.6 F 86 18 161/80 H 92 L Nasal Cannula 4 04/01/23 06:47 BiPAP 04/01/23 04:56 BiPAP 04/01/23 03:00 Nasal Cannula 4 04/01/23 01:00 BiPAP 04/01/23 00:00 97.4 F L 80 18 150/100 H 96 Vapotherm 40 03/31/23 23:00 BiPAP 03/31/23 21:00 BiPAP 03/31/23 20:00 BiPAP 03/31/23 20:00 97.5 F L 87 18 160/65 H 95 Vapotherm 40 03/31/23 18:47 03/31/23 18:48 BiPAP 03/31/23 17:00 BiPAP 03/31/23 15:00 BiPAP 03/31/23 15:23 98.4 F 79 19 148/83 H 98 BiPAP 03/31/23 13:10 FiO2 04/01/23 10:59 04/01/23 09:00 04/01/23 06:30 45 04/01/23 07:19 04/01/23 04:00 04/01/23 06:47 04/01/23 04:56 04/01/23 03:00 04/01/23 01:00 04/01/23 00:00 03/31/23 23:00 03/31/23 21:00 03/31/23 20:00 03/31/23 20:00 03/31/23 18:47 45 03/31/23 18:48 03/31/23 17:00 03/31/23 15:00 03/31/23 15:23 03/31/23 13:10 45 Intake and Output 03/31/23 04/01/23 04/01/23 23:59 07:59 15:59 Intake Total 0 / 480 480 / 480 Output Total 250 / 1350 300 / 2750 2450 / 2750 Balance -250 / -700 -300 / -2270 -1970 / -2270 Intake: Intake, Oral Amount 0 / 480 480 / 480 Output: Output, Urine Amount 250 / 1350 300 / 2750 2450 / 2750 Other: Number of Unmeasured Voids 0 Weight 146.765 kg Patient Weight 04/01/23 23:59 Weight 146.765 kg Laboratory Results - last 24 hr 03/31/23 11:30: Chlamy pneumoniae PCR Not detected, Adenovirus (PCR) Not detected, B. pertussis DNA (PCR) Not detected, Coronavirus OC43 (PCR) Not detected, Coronavirus HKU1 (PCR) Not detected, Coronavirus 229E (PCR) Not detected, SARS-CoV-2 (PCR) Not detected, Coronavirus NL63 (PCR) Not detected, Human Metapneumovir PCR Not detected, Influenza A (H1) PCR Not detected, Influ A (H1N1/09) PCR Not detected, Influenza A (H3) PCR Not detected, Influenza Type A (PCR) Not detected, Influenza Type B (PCR) Not detected, M. pneumoniae (PCR) Not detected, Parainfluenza 1 (PCR) Not detected, Parainfluenza 2 (PCR) Not detected, Parainfluenza 3 (PCR) Not detected, Parainfluenza 4 (PCR) Not detected, RSV (PCR) Not detected, Entero/Rhino (PCR) Not detected 03/31/23 16:32: POC Glucose 234 H 03/31/23 17:00: Specimen Source Left radial, O2 % 45, ABG pH 7.35, ABG pCO2 64.5 H, ABG pO2 83.1, ABG HCO3 35.1 H, ABG Total CO2 37.0 H, ABG O2 Saturation 97, ABG Base Excess 9.5 H, Vent Rate 22 03/31/23 22:45: POC Glucose 213 H 04/01/23 05:33: POC Glucose 215 H 04/01/23 06:00: Specimen Source Left radial, O2 % Bipap 20/6, 45%, ABG pH 7.34 L, ABG pCO2 65.8 H, ABG pO2 76.5 L, ABG HCO3 34.9 H, ABG Total CO2 36.9 H, ABG O2 Saturation 96, ABG Base Excess 9.1 H, Arley Test Acceptable, Vent Rate 22 04/01/23 06:17: WBC 11.9 H D, RBC 6.48 H, Hgb 17.0, Hct 59.3 H, MCV 91.4, MCH 26.2 L, MCHC 28.7 L, RDW 14.5, Plt Count 257, MPV 8.0, Neut % (Auto) 84.5 H, Lymph % (Auto) 4.0 L, [place] % (Auto) 11.2 H, Eos % (Auto) 0.2, Baso % (Auto) 0.1, Neut # (Auto) 10.0 H, Lymph # (Auto) 0.5 L, Charlotte # (Auto) 1.3 H, Eos # (Auto) 0.0, Baso # (Auto) 0.0, Sodium 139, Potassium 4.6, Chloride 97 L, Carbon Dioxide 39 H, Anion Gap 7.6, BUN 17 D, Creatinine 0.60 L, Estimated Creat Clear 152, Estimated GFR 143, Est GFR ( Amer) 173, Glucose 258 H, Calcium 8.4
[2023-04-01 16:00] LABS: POC Glucose,Bedside 245 (70-110)
--- NOTE | 2023-04-01 18:36 | PC.NURSE ---
Patient has been alert and oriented x4 today. Patient appropriate and following directions.
[2023-04-01 20:11] LABS: POC Glucose,Bedside 295 (70-110)
[2023-04-01 20:14] LABS: ABG Base Excess 16.8 mmol/L (-2.4-2.3); ABG HCO3 42.1 mmhg (22.0-26.0); ABG Oxygen Saturation 94 % (90-100); ABG PH 7.37 mmol/L (7.35-7.45); ABG PO2 67.5 mmhg (80-100); ABG TCO2 44.4 mmhg (23-27)
[2023-04-01 20:15] LABS: Allen's Test Acceptable; Oxygen 3 LPM %; Source Left Radial
[2023-04-01 20:44] LABS: ABG PCO2 74.5 mmhg (35.0-45.0)
--- NOTE | 2023-04-01 21:53 | PC.NURSE ---
CARE TX TO [facility] @ 0630
[2023-04-02 03:23] VITALS: RESP 22
[2023-04-02 03:57] VITALS: BP 147/78; PULSE 67; RESP 24; TEMP 36.9; O2SAT 91; BMI 45.6
[2023-04-02 06:06] LABS: POC Glucose,Bedside 170 (70-110)
[2023-04-02 06:45] LABS: Alanine Aminotransferase 12 U/L (12-78); Albumin Level 3.5 g/dl (3.5-5.0); Alkaline Phosphatase 82 U/L (38-126); Aspartate Amino Transferase 18 U/L (17-59); Bilirubin,Total 0.5 mg/dl (0.2-1.3); Blood Urea Nitrogen 25 mg/dl (9-20); Calcium 8.4 mg/dl (8.4-10.2); Chloride 94 mmol/L (98-107); Creatinine Clearance Estimated 152 mL/min (50-200); Estimated Glomerular Filt Rate 143 ml/min (>60); GFR (African American) 173 ML/MIN (>60); Globulin 3.4 g/dL (1.3-3.2); Glucose 174 mg/dl (74-100); Potassium 4.3 mmoL/L (3.5-5.1); Sodium 143 mmol/L (136-145); Total Protein,Serum 6.9 g/dl (6.3-8.2)
[2023-04-02 06:56] LABS: Basophils % 0.2 % (0.1-2.0); Eosinophils % 0.2 % (0.1-12.0); Hematocrit 59.7 % (42.0-52.0); Hemoglobin 17.4 g/dL (14.1-18.0); Lymphocytes # 1.2 K/mm3 (0.7-4.5); Lymphocytes % 10.9 % (10-50); Mean Corpuscular HGB Conc 29.2 g/dL (31.8-35.4); Mean Corpuscular Hemoglobin 26.3 pg (27.0-31.2); Mean Corpuscular Volume 90.1 fl (80-94); Mean Platelet Volume 7.8 fl (7.4-10.4); Monocytes # 1.1 K/mm3 (0.1-1.0); Monocytes % 10.1 % (1.7-9.3); Neutrophils # 8.8 K/mm3 (1.8-7.8); Neutrophils % 78.6 % (37.0-80.0); Platelet Count 247 K/mm3 (142-424); Red Blood Count 6.63 M/mm3 (4.60-6.20); Red Cell Distribution Width 14.4 % (11.5-17.5); White Blood Count 11.1 K/mm3 (4.8-10.8)
[2023-04-02 06:59] LABS: Anion Gap 9.3 mEq/L (5-15); Carbon Dioxide 44 mmol/L (22.0-30.0)
--- NOTE | 2023-04-02 07:48 | PC.NURSE ---
Patients oxygen was 86 on room air at rest.
[2023-04-02 07:49] VITALS: O2SAT 86
[2023-04-02 08:00] VITALS: BP 122/71; PULSE 69; RESP 18; TEMP 37; O2SAT 94
[2023-04-02 11:58] LABS: POC Glucose,Bedside 237 (70-110)
[2023-04-02 12:00] VITALS: BP 100/58; PULSE 67; RESP 22; TEMP 36.9; O2SAT 91
--- NOTE | 2023-04-02 12:15 | EXP.DC.SUM ---
General Admission date:: 03/31/23 Discharge date: 04/02/23 HPI HPI HPI: This is a 52-year-old male with PMHx of sleep apnea, COPD only on nocturnal O2, coronary artery disease, HTN, morbid obesity and tobacco dependence who presents emergency department for evaluation of eye swelling and discharge. Onset was acute, occurring over the last 24 hours, right-sided with associated drainage from both eyes. Patient does not wear contacts or have corrective vision. During his ER evaluation his saturation was noted to be approximately 70% when asked if he was short of breath he states that he has had progressive shortness of breath over the last month, has chronic cough that is no worse than baseline. Patient denies chest pain, abdominal pain, other acute complaints at this time. He does state that he ran out of his Anoro Ellipta at home however only takes daily albuterol. Admitted for further treatment. Hospital Course Hospital Course Hospital Course: This is a 52-year-old male with PMHx of sleep apnea, COPD only on nocturnal O2, coronary artery disease, HTN, morbid obesity and tobacco dependence who presents emergency department for evaluation of eye swelling and discharge. Onset was acute, occurring over the 24 hours preceding admission. Drainage from the right eye. Has improved during admission with antibiotics and eyedrops. Responded to adjustments in BiPAP with improvement in his acidosis and hypercarbia. At this time he appears at his baseline metabolically compensated chronic respiratory acid base disorder. Stable on current BiPAP settings of 20/8. Has been able to wean to room air during the day with diuresis. Stable for discharge home. Problems addressed as follows: -Acute respiratory failure with hypercapnia and hypoxia. -COPD exacerbation -Obstructive sleep apnea Admitted for acute exacerbation of chronic respiratory failure. Hypercapnia and hypoxia. Started on antibiotics for COPD exacerbation and his conjunctivitis. Treated with Decadron initially, completed 3 days of Decadron therapy. Chest imaging concerning for some pulmonary edema as well on presentation. Responded well to diuresis. Adjustments made to his BiPAP. At home reportedly wears BiPAP with settings of 19/15. Did not respond well to the settings during admission, gas did not show improvement. Responded well to settings of 20/8 with improvement in his acidosis. Calculations performed via Aggarwal formula show that patient's chronic respiratory acidosis has metabolic compensation. He is at baseline mentation at this time. Stable for discharge home to continue treatment. Recommend he continue to wear his BiPAP at night with oxygen bled in. Weaned to room air during the day with diuresis. Continue diuretics daily. Updated changes to BiPAP settings sent to [facility]. -Acute bacterial conjunctivitis: Started on trimethoprim-polymyxin 1-2 drop each eye every 4. CT of the head and periorbital showing soft tissue swelling and paraseptal abscess. Complete doxycycline as prescribed -Tobacco abuse: Not interested in cessation despite the time spending on education. Treated with nicotine patch during admission -Morbid obesity: Complicates all aspects of his care Spent 40 minutes in discharge counseling and direct care with patient. Exam Data for Last 24 hours Vital signs and Labs for Last 24 Hours: Temp Pulse Resp BP Pulse Ox O2 Del Method O2 Flow Rate 98.6 F 69 18 122/71 94 L Room Air 2 04/02/23 08:00 04/02/23 08:00 04/02/23 08:00 04/02/23 08:00 04/02/23 08:00 04/02/23 11:00 04/02/23 09:00 FiO2 45 04/02/23 03:23 Laboratory Results - last 24 hr 04/01/23 11:08: POC Glucose 295 H 04/01/23 15:52: POC Glucose 245 H 04/01/23 20:00: Specimen Source Left radial, O2 % 3 lpm, ABG pH 7.37, ABG pCO2 74.5 H, ABG pO2 67.5 L, ABG HCO3 42.1 H, ABG Total CO2 44.4 H, ABG O2 Saturation 94, ABG Base Excess 16.8 H, Arley Test Acceptable 04/02/23 05:5
--- NOTE | 2023-04-02 12:36 | HMH.PHAINT1 ---
Pharmacy Intervention Comments: Patient's home medications discussed and reviewed with patient - Start Doxycycline - Start Polymyxin B Sulf-trimethoprim - Start Stiolto - Stop Anoro - Stop Furosemide patient had no further questions at this time -Melchor Reece, Pharm Student
--- NOTE | 2023-04-03 16:10 | CARE MANAGER ---
Called and spoke with patient regarding recent discharge. 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
== END 2023-04-02 14:20 | disposition home or self-care (01) | DRG 189 ==
LOC: ER 23:20 → 2ND 03-31 01:31
PROVIDERS: Nurse Practitioner Critical Care Medicine; Nurse Practitioner Family; Admitting Provider Internal Medicine Adolescent Medicine; Emergency Provider Emergency Medicine; PCP Nurse Practitioner Family; Visit Provider Internal Medicine Adolescent Medicine
DX: J96.02 Acute respiratory failure with hypercapnia (principal); L03.213 Periorbital cellulitis; E66.2 Morbid (severe) obesity with alveolar hypoventilation; J43.9 Emphysema, unspecified; Z68.42 Body mass index [BMI] 45.0-49.9, adult; H10.31 Unspecified acute conjunctivitis, right eye; Z86.69 Personal history of other diseases of the nervous system and sense organs; I10 Essential (primary) hypertension; Z72.0 Tobacco use
CPT/HCPCS: 36415; 70481; 71045; 71275; 80053; 82803; 82962; 83735; 83880; 84484; 85007; 85025; 85378; 87040; 87581; 87632; 87798; 93005; 93306; 94660; 99291; J0456; J0696; J3475; Q9957; Q9967

== ENCOUNTER → 2023-04-21 15:13 | Outpatient (CLI) | payer MEDICARE, SELFPAY ==
[2023-04-21 16:09] LABS: Basophils # 0.1 K/mm3 (0-0.2); Basophils % 0.4 % (0.1-2.0); Eosinophils # 0.4 K/mm3 (0.0-0.4); Eosinophils % 3.9 % (0.1-12.0); Hematocrit 57.4 % (42.0-52.0); Lymphocytes % 17.6 % (10-50); Mean Corpuscular HGB Conc 29.6 g/dL (31.8-35.4); Mean Corpuscular Hemoglobin 26.8 pg (27.0-31.2); Mean Corpuscular Volume 90.7 fl (80-94); Mean Platelet Volume 8.1 fl (7.4-10.4); Monocytes # 0.8 K/mm3 (0.1-1.0); Monocytes % 6.8 % (1.7-9.3); Neutrophils # 8.1 K/mm3 (1.8-7.8); Neutrophils % 71.3 % (37.0-80.0); Platelet Count 361 K/mm3 (142-424); Red Blood Count 6.33 M/mm3 (4.60-6.20); Red Cell Distribution Width 15.8 % (11.5-17.5); White Blood Count 11.4 K/mm3 (4.8-10.8)
[2023-04-21 16:43] LABS: C-Reactive Protein 29.3 mg/L (0-4)
[2023-04-28 19:03] LABS: E001-IgE Cat Dander <0.10 kU/L (Class 0); E005-IgE Dog Dander <0.10 kU/L (Class 0); I006-IgE Cockroach, German 0.52 kU/L (Class I)
[2023-04-30 11:12] LABS: Antinuclear Antibodies (ANA) NEGATIVE
== END ==
PROVIDERS: PCP Emergency Medicine; Visit Provider Internal Medicine Pulmonary Disease
DX: R06.09 Other forms of dyspnea (principal); J84.9 Interstitial pulmonary disease, unspecified; J30.9 Allergic rhinitis, unspecified
CPT/HCPCS: 36415; 82785; 85025; 86003; 86038; 86140; 86225; 86235

== ENCOUNTER → 2023-04-29 10:07 | Outpatient (CLI) | payer MEDICARE, SELFPAY ==
[2023-04-29 11:20] LABS: ABG Base Excess 6.9 mmol/L (-2.4-2.3); ABG Oxygen Saturation 89 % (90-100); ABG PH 7.38 mmol/L (7.35-7.45); ABG TCO2 33.7 mmhg (23-27)
[2023-04-29 11:22] LABS: Oxygen ROOM AIR %
[2023-04-29 11:23] LABS: Allen's Test ACCEPTABLE; Source L RADIAL
[2023-04-29 11:24] LABS: ABG PCO2 55.1 mmhg (35.0-45.0)
== END ==
LOC: LAB 10:08 → RT 10:12
PROVIDERS: Visit Provider Nurse Practitioner Family
DX: R06.89 Other abnormalities of breathing; E66.2 Morbid (severe) obesity with alveolar hypoventilation; Z86.69 Personal history of other diseases of the nervous system and sense organs; Z68.41 Body mass index [BMI] 40.0-44.9, adult
CPT/HCPCS: 82803

== ENCOUNTER → 2023-05-18 06:56 | Outpatient (CLI) | payer MEDICARE, SELFPAY ==
--- NOTE | 2023-05-18 07:00 | NM_ITS ---
APPROVED REPORT Exam: Nuclear Stress Test Indication: CAD, H/O [place], CARDIOMYOPAHTY, OBESITY, HTN, HYPERLIPIDEMIA, TOB USE, FM HX., SOB, FATIGUE, ABN EKG, SLLEP APNEA Patient Location: Outpatient Stress Tech: Shira Carpenter NM Tech:Kelin Mena, ARRT RT (R)(N)(M) Ht: 5 ft 11 in Wt: 305 lbs HR: 66 bpm BP: 126/71 mmHg BSA: 2.52 m2 Rhythm: NSR TID: 1.23 BMI: 42.5 History: CAD, H/O [place], CARDIOMYOPAHTY, OBESITY, HTN, HYPERLIPIDEMIA, TOB USE, FM HX., SOB, FATIGUE, ABN EKG, SLLEP APNEA Procedure: Patient received 0.4 mg of intravenous Lexiscan, resting heart rate 66 bpm, resting blood pressure 126/71 mmHg, with Lexiscan maximum heart rate achieved was 76 bpm which is % of the maximum predicted heart rate and blood pressure was 111/49 mmHg. With Lexiscan, patient denied any complaint of chest pain. Cardiac Stress and Resting SPECT Images: Cardiac Stress and Resting SPECT images were obtained using technetium 99m Myoview 31.0 mCi stress and 10.23 mCi at rest. Resting and stress imaging in both supine and prone positions demonstrate a large-sized, moderate, fixed perfusion defect in the inferior and inferoseptal LV ann from the base and extending distally towards the inferoapical region. There is increased transient ischemic dilatation ratio (TID 1.23), suggestive of possible multivessel disease or balanced ischemia. Gated imaging demonstrates normal global LV systolic function. There is mild hypokinesis of the inferior LV wall. LVEF is calculated at 54%. Conclusion: Large-sized, moderate, fixed perfusion defect in the inferior and inferoseptal LV ann from the base and extending distally towards the inferoapical region. No evidence of reversible ischemia. Increased transient ischemic dilatation ratio (TID 1.23), suggestive of possible multivessel disease or balanced ischemia. Gated imaging demonstrates normal global LV systolic function. There is mild hypokinesis of the inferior LV wall. LVEF is calculated at 54%. Electronically signed by : Kimberli Julien MD 05/30/2023 16:50:52
--- NOTE | 2023-05-18 10:32 | CA_ITS ---
APPROVED REPORT Exam: Pharmacologic Technologist: Shira Carpenter Ht: 5 ft 11 in Wt: 313 lbs BSA: 2.55 m2 HR: 66 bpm BP: 126/71 mmHg Rhythm: NSR Indications: CAD, dyspnea, chest pain Medical History Medications: Albuterol,,,,, BisOPROLOL,,,,, SpirOnolactone,,,,, RoSUVASTATIN,,,,, BuMETANIDE,,,,, StIOLto Respimat,,,,, Stress Test Details Test: LEXISCAN HR Resting HR: 66 bpm Max Heart Rate (APMHR): 169 bpm Max HR Achieved: 79 bpm Target HR (85% APMHR): 144 bpm % of APMHR: 47 Recovery HR: 71 bpm BP Resting BP: 126.0/71.0 mmHg Max BP: 131.0/64.0 mmHg Recovery BP: 131.0/64.0 mmHg ECG Resting ECG: NSR, possible old septal OR Stress ECG: No ST changes Arrhythmia: None Clinical Exercise duration: 04:00 min Highest Stage Achieved: Exercise capacity: 1.0 METs Stress ECG Conclusion Symptoms: Dyspnea, lightheaded Arrhythmias/Ectopy: None ST-T Changes: No significant ST changes. Conclusion: Unremarkable Lexiscan stress test. Myoview images are reported separately. Test Summary REST . . . . . . . Resting REST 06:44 . . 66 . 126/ 71 . . Stage 1 . . . . . . . Myoview Injected Stage 1 01:00 . . 75 . . . . Stage 2 01:00 . . 77 . . . . Stage 3 01:00 . . 75 . 103/ 58 . . Stage 4 01:00 . . 75 . 113/ 58 . Stop exercise at 04:00 RECOVERY 01:00 . . 75 . . . . RECOVERY 02:00 . . 73 . 115/ 63 . . RECOVERY 02:50 . . 72 . 131/ 64 . . Electronically signed by : Kimberli Julien MD 05/30/2023 16:46:46
== END ==
PROVIDERS: PCP Emergency Medicine; Visit Provider Nurse Practitioner Family
DX: I10 Essential (primary) hypertension (principal); I20.8 Other forms of angina pectoris; I27.20 Pulmonary hypertension, unspecified; I51.89 Other ill-defined heart diseases; R06.09 Other forms of dyspnea
CPT/HCPCS: 78452; 93017; A9502; J2785

== ENCOUNTER → 2023-06-09 12:56 | Outpatient (CLI) | payer MEDICARE, SELFPAY ==
[2023-06-09 13:40] VITALS: PULSE 75; PULSE 78
[2023-06-09 15:50] LABS: Chloride 98 mmol/L (98-107); Potassium 4.2 mmoL/L (3.5-5.1); Sodium 137 mmol/L (136-145)
[2023-06-09 15:53] LABS: Anion Gap 10.2 mEq/L (5-15); Blood Urea Nitrogen 9 mg/dl (9-20); Carbon Dioxide 33 mmol/L (22.0-30.0); Estimated Glomerular Filt Rate 119 ml/min (>60); GFR (African American) 144 ML/MIN (>60); Glucose 122 mg/dl (74-100)
== END ==
PROVIDERS: Nurse Practitioner Family; PCP Emergency Medicine; Visit Provider Internal Medicine Pulmonary Disease
DX: R06.09 Other forms of dyspnea; I20.89 Other forms of angina pectoris; I10 Essential (primary) hypertension; I27.20 Pulmonary hypertension, unspecified
CPT/HCPCS: 36415; 80048; 94060; 94618; 94640; 94727; 94729

== ENCOUNTER 2023-06-24 07:26 | Day surgery (SDC) | payer MEDICARE, SELFPAY ==
[2023-06-24] VITALS (18 sets, daily range): BP systolic 107–130; BP diastolic 54–75; PULSE 71–80; RESP 17–24; O2SAT 88–95; BMI 43.2
--- NOTE | 2023-06-24 07:07 | IR_ITS ---
APPROVED REPORT Patient Location: Outpatient PROCEDURES Left heart catheterization Left ventriculogram Selective coronary angiogram INDICATION High risk abnormal Myoview, Angina pectoris Informed consent was obtained prior to the procedure. COMPLICATIONS None Estimated Blood Loss: Less than 10 mls TECHNIQUE One percent lidocaine used to anesthetize the right anterior aspect of the wrist. The right radial artery was accessed via the Seldinger technique. A 6 Yoruba sheath was placed in the right radial artery. 2.5 mg of Verapamil, 800 mcg of nitroglycerin, 1mg Lidocaine and 5000 U Heparin were given through the arterial sheath. The papa catheter was also used to perform left heart catheterization, left ventriculogram and selective coronary angiogram. At the end of the procedure the sheath was removed good hemostasis was achieved using Traclet band, patient was transferred to the postop holding area in stable condition. ANGIOGRAPHIC RESULTS The left main artery Normal The left anterior descending artery Mild proximal mid vessel and distal 10% luminal irregularities The circumflex artery Diffuse 10% luminal irregularities The right coronary artery Dominant with diffuse 10% luminal irregularities The ANSARI ventriculogram reveals Mild left ventricular dilatation with preserved ejection fraction estimated at 55 to 60% The left ventricular end-diastolic pressure 25 mmHg IMPRESSION Mild nonflow limiting coronary disease Left ventricular dilatation with preserved ejection fraction Elevated LVEDP PLAN 1. Treatment of diastolic dysfunction 2. Risk factor modification 3. Recommend sleep study Electronically signed by : Reginald Oliver MD 06/24/2023 10:29:34
[2023-06-24 08:18] LABS: Basophils # 0.1 K/mm3 (0-0.2); Basophils % 0.5 % (0.1-2.0); Eosinophils # 0.5 K/mm3 (0.0-0.4); Eosinophils % 3.6 % (0.1-12.0); Hematocrit 49.1 % (42.0-52.0); Hemoglobin 16.8 g/dL (14.1-18.0); Lymphocytes # 2.5 K/mm3 (0.7-4.5); Lymphocytes % 17.5 % (10-50); Mean Corpuscular HGB Conc 34.1 g/dL (31.8-35.4); Mean Corpuscular Hemoglobin 30.7 pg (27.0-31.2); Mean Corpuscular Volume 89.9 fl (80-94); Mean Platelet Volume 9.1 fl (7.4-10.4); Monocytes # 0.9 K/mm3 (0.1-1.0); Neutrophils # 10.4 K/mm3 (1.8-7.8); Neutrophils % 72.5 % (37.0-80.0); Platelet Count 302 K/mm3 (142-424); Red Blood Count 5.46 M/mm3 (4.60-6.20); Red Cell Distribution Width 15.2 % (11.5-17.5); White Blood Count 14.4 K/mm3 (4.8-10.8)
[2023-06-24 08:52] LABS: Chloride 98 mmol/L (98-107); Potassium 4.4 mmoL/L (3.5-5.1); Sodium 137 mmol/L (136-145)
[2023-06-24 08:55] LABS: Anion Gap 11.4 mEq/L (5-15); Blood Urea Nitrogen 12 mg/dl (9-20); Calcium 8.5 mg/dl (8.4-10.2); Carbon Dioxide 32 mmol/L (22.0-30.0); Creatinine Clearance Estimated 186 mL/min (50-200); Estimated Glomerular Filt Rate 175 ml/min (>60); GFR (African American) 212 ML/MIN (>60); Glucose 132 mg/dl (74-100)
== END 2023-06-24 13:50 | disposition home or self-care (01) ==
PROVIDERS: PCP Emergency Medicine; Visit Provider Internal Medicine
DX: E78.5 Hyperlipidemia, unspecified (principal); I11.0 Hypertensive heart disease with heart failure; I25.118 Atherosclerotic heart disease of native coronary artery with other forms of angina pectoris; I27.20 Pulmonary hypertension, unspecified; I50.33 Acute on chronic diastolic (congestive) heart failure; R06.09 Other forms of dyspnea; R94.39 Abnormal result of other cardiovascular function study
CPT/HCPCS: 80048; 85025; 93458; 99152; 99153; C1725; C1769; J1644; Q9967